=== PATIENT | female | born 1965 | race Caucasian/White ===

== ENCOUNTER 2016-04-28 07:39 | Inpatient (IN) | payer BC ==
[2016-04-28] MEDS ORDERED: ONDANSETRON HCL INJ/PF 4 MG/2 ML SDV IV ONE (09:41)
--- NOTE | 2016-04-28 09:42 | ER Document Report ---
ED General - General Chief Complaint: Abdominal Pain Stated Complaint: ABDOMINAL PAIN Mode of Arrival: Ambulatory Information source: Patient Notes: Patient presents to the emergency department with complaints of abdominal pain nausea vomiting since 0200 this am. Patient reports history of pancreatitis. Patient reports she drank approximately 18 beers last night. TRAVEL OUTSIDE OF THE [place] IN LAST 30 DAYS: No - HPI Onset: This morning Onset/Duration: Sudden, Persistent Severity: Severe Pain Level: 5 Associated symptoms: Nausea, Vomiting Exacerbated by: Denies Relieved by: Denies Similar symptoms previously: Yes Recently seen / treated by doctor: No - Related Data Allergies/Adverse Reactions: No Known Allergies Allergy (Verified 04/28/16 07:59) Past Medical History - General Information source: Patient Last Menstrual Period: irregular - Social History Smoking Status: Current Every Day Smoker Cigarette use (# per day): Yes Frequency of alcohol use: Heavy Drug Abuse: None Occupation: [place] Lives with: Alone Family History: Reviewed & Not Pertinent Patient has suicidal ideation: No Patient has homicidal ideation: No - Past Medical History Cardiac Medical History: Reports: Hx Hypercholesterolemia, Hx Hypertension Denies: Hx Heart Attack Comment Only: Hx Coronary Artery Disease - high lipids Pulmonary Medical History: Reports: Hx Bronchitis Denies: Hx Asthma, Hx COPD, Hx Pneumonia Neurological Medical History: Denies: Hx Cerebrovascular Accident, Hx Seizures Renal/ Medical History: Reports: Hx Kidney Stones. Denies: Hx Peritoneal Dialysis GI Medical History: Reports: Hx Gastroesophageal Reflux Disease, Other - pancreatitis Musculoskeltal Medical History: Denies Hx Arthritis Psychiatric Medical History: Reports: Hx Depression - takes zoloft Past Surgical History: Reports: Hx Tonsillectomy, Hx Tubal Ligation. Denies: Hx Hysterectomy - Immunizations Hx Diphtheria, Pertussis, Tetanus Vaccination: Yes Review of Systems - Review of Systems Notes: Review HPI for review of systems., All other systems negative Physical Exam - Vital signs Vitals: Temp Pulse Resp BP Pulse Ox 97.7 F 92 21 H 178/90 H 97 04/28/16 07:45 04/28/16 07:45 04/28/16 07:45 04/28/16 07:45 04/28/16 07:45 - Notes Notes: PHYSICAL EXAMINATION: GENERAL: Looks older than age HEAD: Atraumatic, normocephalic. EYES: Pupils equal round , extraocular movements intact, sclera anicteric, conjunctiva are normal. ENT: nares patent, oropharynx clear without exudates. Moist mucous membranes. NECK: Normal range of motion, supple without lymphadenopathy LUNGS: CTAB and equal. No wheezes rales or rhonchi. no cough, rr even/unlabored HEART: Tachy ABDOMEN: Soft,generalized tenderness. No guarding, no rebound EXTREMITIES: Normal range of motion, no pitting edema. NEUROLOGICAL: Cranial nerves grossly intact. Normal sensory/motor . PSYCH: Normal mood, normal affect. SKIN: Warm, Dry, normal turgor, Course - Re-evaluation Re-evalutation: 04/28/16 11:30 I have consulted the attending provider, dr estrella, per [facility] guidelines 04/28/16 11:48 Contacted [facility] for admission, pt to be admitted tele innjt. patient updated on plan. - Vital Signs Vital signs: Temp Pulse Resp BP Pulse Ox 97.7 F 87 19 178/90 H 96 04/28/16 07:45 04/28/16 13:42 04/28/16 13:42 04/28/16 07:45 04/28/16 13:42 - Laboratory Result Diagrams: 04/28/16 07:50 04/28/16 10:40 Laboratory results interpreted by me: 04/28/16 04/28/16 07:50 10:40 WBC 13.8 H MCV 100 H MCH 33.6 H Seg Neutrophils % 84.2 H Lymphocytes % 8.4 L Absolute Neutrophils 11.6 H Glucose 148 H AST 58 H Lipase 3760.4 H Discharge - Discharge Clinical Impression: Alcohol abuse Abdominal pain Qualifiers: Abdominal location: generalized Qualified Code(s): R10.84 - Generalized abdominal pain Pancreatitis Qualifiers: Chronicity: acute Pancreatitis type: alcohol induced Acute pancreatitis complication: unspecified Qualified Code(s): K85.20 - Alcohol induced acute pancreatitis without necrosis or infection Condition: Stable Disposition: ADMITTED INPATIENT Admitting Provider: Hospitalist Unit Admitted: Telemetry
[2016-04-28 10:02] LABS: ABSOLUTE BASOPHILS # (AUTO) 0.1 10^3/uL (0.0-0.2); ABSOLUTE EOSINOPHILS # (AUTO) 0.2 10^3/uL (0.0-0.6); ABSOLUTE LYMPHOCYTES (AUTO) 1.2 10^3/uL (0.5-4.7); ABSOLUTE MONOCYTES (AUTO) 0.7 10^3/uL (0.1-1.4); ABSOLUTE NEUT (AUTO) 11.6 10^3/uL (1.7-8.2); BASOPHILS % (AUTO) 0.6 % (0-2); EOSINOPHILS % (AUTO) 1.5 % (0-6); HEMATOCRIT 43.2 % (36.0-47.0); HEMOGLOBIN 14.5 g/dL (12.0-15.5); HGB HCT DIFFERENCE 0.3; LYMPHOCYTES % (AUTO) 8.4 % (13-45); MEAN CORPUSCULAR HEMOGLOBIN 33.6 pg (27.0-33.4); MEAN CORPUSCULAR HGB CONC 33.6 g/dL (32.0-36.0); MEAN CORPUSCULAR VOLUME 100 fl (80-97); MONOCYTES % (AUTO) 5.3 % (3-13); RED BLOOD COUNT 4.33 10^6/uL (3.72-5.28); SEGMENTED NEUTROPHILS % (AUTO) 84.2 % (42-78); WHITE BLOOD COUNT 13.8 10^3/uL (4.0-10.5)
[2016-04-28] MEDS ORDERED: NORMAL SALINE 1000 ML 1,000 ML IV ONE (11:14)
[2016-04-28 11:15] LABS: ALANINE AMINOTRANSFERASE 45 U/L (9-52); ALBUMIN 4.5 g/dL (3.5-5.0); ALKALINE PHOSPHATASE 82 U/L (38-126); ANION GAP 12 (5-19); ASPARTATE AMINO TRANSFERASE 58 U/L (14-36); BILIRUBIN,TOTAL 0.7 mg/dL (0.2-1.3); BLOOD UREA NITROGEN 14 mg/dL (7-20); CALCIUM 10.1 mg/dL (8.4-10.2); CARBON DIOXIDE 27 mmol/L (22-30); CHLORIDE 104 mmol/L (98-107); CREATININE RESULT 0.53 mg/dL (0.52-1.25); GLUCOSE 148 mg/dL (75-110); POTASSIUM 4.8 mmol/L (3.6-5.0); SODIUM 143.3 mmol/L (137-145); TOTAL PROTEIN 7.4 g/dL (6.3-8.2)
[2016-04-28 11:25] LABS: LIPASE 3760.4 U/L (23-300)
[2016-04-28 11:30] LABS: APPEARANCE,URINE TURBID; BILIRUBIN,URINE NEGATIVE (NEGATIVE); GLUCOSE, URINE NEGATIVE (NEGATIVE); KETONES,URINE NEGATIVE (NEGATIVE); LEUKOCYTE ESTERASE,URINE NEGATIVE (NEGATIVE); NITRITE,URINE NEGATIVE (NEGATIVE); PROTEIN,URINE NEGATIVE (NEGATIVE); URINE SPECIFIC GRAVITY 1.029; UROBILINOGEN,URINE NEGATIVE mg/dL (<2.0)
[2016-04-28] MEDS ORDERED: MORPHINE SULFATE 10 MG/ML INJ IV ONE (11:40)
[2016-04-28] MEDS ORDERED: ONDANSETRON HCL INJ/PF 4 MG/2 ML SDV IV PRN (12:08)
[2016-04-28] MEDS ORDERED: THIAMINE HCL 100 MG, FOLIC ACID 1 MG in NORMAL SALINE 50 ML IV ONE ×2 (12:14→14:30)
[2016-04-28] MEDS ORDERED: LORAZEPAM INJ 2 MG/1 ML VIAL IV PRN (12:15)
[2016-04-28] MEDS ORDERED: MORPHINE SULFATE 10 MG/ML INJ IV PRN (12:19)
[2016-04-28] MEDS ORDERED: LORAZEPAM INJ 2 MG/1 ML VIAL ONE (12:34)
[2016-04-28] MEDS ORDERED: HYDROMORPHONE HCL INJ/PF 2 MG/ML AMPULE IV PRN ×2 (12:42→15:18)
[2016-04-28] MEDS: NORMAL SALINE 1000 ML 1,000 ML IV PRN (14:56)
[2016-04-28] MEDS: HEPARIN SOD (PORCINE) 5,000 UNIT/ML 1 ML SYRINGE SUBCUT SCH ×2 (14:57→22:45)
--- NOTE | 2016-04-28 15:02 | PDOC H&P ---
History of Present Illness Admission Date/PCP: 04/28/16 12:09 MOIRA VASQUEZ NP Patient complains of: Diffuse, worsening abdominal pain History of Present Illness: MICHAEL BANGURA is a 51 year old female who presents to [facility] ED for afternoon, with complaints of severe worsening epigastric pain. Patient states she has a history of chronic alcohol abuse consuming on the average of 6 beers per day. She states over the weekend in the last 24 hours she is consumed 18 beers. She states the pain began at 2 AM this morning, and worsened in intensity. Pain is very sharp in nature and stabbing. Patient has prior history of acute alcoholic pancreatitis 1 year ago, and her symptoms are very much the same. She denies any nausea or vomiting associated with pain. She states the morphine she was given earlier by the ER provider worsened her pain in intensity. She is somewhat tremulous, but states this is because of the severity of her present pain. She states she has been working and is presently seeing a psychiatrist to assist her in becoming sober. She also has a congested cough she states this has been worsening over the last 2-3 days but is not unusual for her she smokes half a pack to a pack of cigarettes per day. She denies any prior history of delirium tremens or seizures associated with her alcohol abuse. She states she is attempting to find sobriety. She denies any shortness breath, chest pain, or dyspnea. She denies any other complaints at this time. Past Medical History Cardiac Medical History: Reports: Hyperlipidema, Hypertension Denies: Myocardial Infarction Comment Only: Coronary Artery Disease - high lipids Pulmonary Medical History: Reports: Bronchitis, Chronic Obstructive Pulmonary Disease (COPD), Respiratory Failure Denies: Asthma, Pneumonia EENT Medical History: Reports: None Neurological Medical History: Reports: None Denies: Seizures Endocrine Medical History: Reports: None Renal/ Medical History: Reports: None Malignancy Medical History: Reports: None GI Medical History: Reports: Gastroesophageal Reflux Disease, Other - prior episode of alcohol induced pancreatitis Musculoskeltal Medical History: Denies: Arthritis Skin Medical History: Reports: None Psychiatric Medical History: Reports: Alcohol Dependency, Depression - takes zoloft, Tobacco Dependency Traumatic Medical History: Reports: None Hematology: Denies: Anemia Infectious Medical History: Reports: None Past Surgical History Past Surgical History: Reports: Tonsillectomy, Tubal Ligation Denies: Hysterectomy Social History Information Source: Patient Lives with: Alone Smoking Status: Current Every Day Smoker Cigarettes Packs Per Day: 1 Number of Years Smokin Frequency of Alcohol Use: Heavy Amount of Alcoholic Beverages Per Day: 6-20 beers Last Alcohol Use: 04/28/16 Hx Recreational Drug Use: No Drugs: None Hx Prescription Drug Abuse: No - Advance Directive Resuscitation Status: Full Code Surrogate healthcare decision maker:: son Azeem Bangura should she become incapacitated Family History Family History: CAD, Hyperlipidemia, Hypertension Parental Family History Reviewed: Yes Children Family History Reviewed: Yes Sibling(s) Family History Reviewed.: Yes Medication/Allergy Home Medications: Esomeprazole Mag Trihydrate [Nexium] 40 mg PO DAILY 04/01/12 Sertraline HCl [Zoloft] 200 mg PO DAILY 04/01/12 Albuterol Sulfate [Albuterol Sulfate 2.5mg/3 mL] 1 vial IH Q4 PRN #40 vial 05/07 Budesonide [Pulmicort Neb 0.5 mg/2 ml Ampul] 0.5 mg NEB RTQ12 #60 ampul.neb Clindamycin HCl [Cleocin 150 mg Capsule] 300 mg PO Q6 #16 capsule 05/07/15 Folic Acid 1 mg PO DAILY #30 tablet 05/07/15 Furosemide [Lasix 40 mg Tablet] 40 mg PO DAILY #30 tablet 05/07/15 Ipratropium/Albuterol Sulfate [Duoneb 3 ml Ampul] 3 ml NEB RTQ6 #120 vial.neb Levofloxacin [Levaquin 750 mg Tablet] 750 mg PO DAILY #4 tablet 05/07/15 Mv-Mn/FA/Vit K/Lycop/Lut/Coq10 [Daily Multivitamin Capsule] 1 each PO DAILY #30 capsule 05/07/15 Prednisone [Sterapred Ds] 1 pkg PO ASDIR PRN 12 Days 05/07/15 Thiamine HCl [Thiamine 100 mg Tablet] 100 mg PO DAILY #30 tablet 05/07/15 Valsartan [Diovan 80 mg Tablet] 80 mg PO DAILY #30 tablet 05/07/15 Allergies/Adverse Reactions: No Known Allergies Allergy (Verified 04/28/16 07:59) Review of Systems Constitutional: ABSENT: chills, fever(s), headache(s), weight gain, weight loss Eyes: ABSENT: visual disturbances Ears: ABSENT: hearing changes Cardiovascular: ABSENT: chest pain, dyspnea on exertion, edema, orthropnea, palpitations Respiratory: PRESENT: cough, sputum. ABSENT: hemoptysis Gastrointestinal: PRESENT: abdominal pain, heartburn Genitourinary: ABSENT: dysuria, hematuria Musculoskeletal: ABSENT: joint swelling Integumentary: ABSENT: rash, wounds Neurological: ABSENT: abnormal gait, abnormal speech, confusion, dizziness, focal weakness, syncope Psychiatric: PRESENT: as per HPI Endocrine: ABSENT: cold intolerance, heat intolerance, polydipsia, polyuria Hematologic/Lymphatic: ABSENT: easy bleeding, easy bruising Physical Exam Vital Signs: Temp Pulse Resp BP Pulse Ox 97.7 F 87 19 178/90 H 96 04/28/16 07:45 04/28/16 13:42 04/28/16 13:42 04/28/16 07:45 04/28/16 13:42 General appearance: PRESENT: mild distress, obese, well-developed, well- nourished - due to pain Head exam: PRESENT: atraumatic, normocephalic Eye exam: PRESENT: conjunctiva pink, EOMI, PERRLA. ABSENT: scleral icterus Ear exam: PRESENT: normal external ear exam Mouth exam: PRESENT: moist, tongue midline Neck exam: ABSENT: carotid bruit, JVD, lymphadenopathy, thyromegaly Respiratory exam: PRESENT: rhonchi, symmetrical, unlabored Cardiovascular exam: PRESENT: RRR. ABSENT: diastolic murmur, rubs, systolic murmur Pulses: PRESENT: normal dorsalis pedis pul Vascular exam: PRESENT: normal capillary refill GI/Abdominal exam: PRESENT: distended, hyperactive bowel sounds, soft, tenderness Rectal exam: PRESENT: deferred Extremities exam: PRESENT: full ROM. ABSENT: calf tenderness, clubbing, pedal edema Neurological exam: PRESENT: alert, awake, oriented to person, oriented to place , oriented to time, oriented to situation, CN II-XII grossly intact. ABSENT: motor sensory deficit Psychiatric exam: PRESENT: anxious Skin exam: PRESENT: dry, intact, warm. ABSENT: cyanosis, rash Assessment & Plan - Diagnosis (1) Acute pancreatitis Qualifiers: Pancreatitis type: alcohol induced Is this a current diagnosis for this admission?: YesPlan: Patient will be kept NPO. Aggressive hydration and pain control with Dilaudid prn (2) Epigastric pain Is this a current diagnosis for this admission?: YesPlan: Protonix 40 mg IV q12 (3) COPD (chronic obstructive pulmonary disease) Qualifiers: Emphysema type: unspecified Is this a current diagnosis for this admission?: Yes (4) Alcohol abuse Is this a current diagnosis for this admission?: YesPlan: Thiamine and Folic Acid IV. Ativan prn for tremors.Patient was counseled (5) Tobacco abuse Is this a current diagnosis for this admission?: YesPlan: Nicotine patch daily. Counseled on need to stop smoking - Time Time Spent: 50 to 70 Minutes Critical Time spent with patient: 25-34 minutes Smoking Cessation Education: 3 to 10 minutes Medications reviewed and adjusted accordingly: Yes Anticipated discharge: Home - Inpatient Certification Based on my medical assessment, after consideration of the patient's comorbidities, presenting symptoms, or acuity I expect that the services needed warrant INPATIENT care.: Yes I certify that my determination is in accordance with my understanding of Medicare's requirements for reasonable and necessary INPATIENT services [42 CFR 412.3e].: Yes Medical Necessity: Need For IV Fluids, Risk of Complication if Not Cared For in Hospital
[2016-04-28] MEDS ORDERED: HYDROMORPHONE HCL INJ/PF 2 MG/ML AMPULE IV ONE (17:00)
[2016-04-28] MEDS: PANTOPRAZOLE SODIUM 40 MG VIAL IV SCH (21:53)
[2016-04-29 04:38] LABS: ABSOLUTE BASOPHILS # (AUTO) 0.1 10^3/uL (0.0-0.2); ABSOLUTE EOSINOPHILS # (AUTO) 0.2 10^3/uL (0.0-0.6); ABSOLUTE LYMPHOCYTES (AUTO) 1.8 10^3/uL (0.5-4.7); ABSOLUTE MONOCYTES (AUTO) 0.6 10^3/uL (0.1-1.4); ABSOLUTE NEUT (AUTO) 5.3 10^3/uL (1.7-8.2); BASOPHILS % (AUTO) 0.6 % (0-2); EOSINOPHILS % (AUTO) 2.7 % (0-6); HEMATOCRIT 38.4 % (36.0-47.0); HEMOGLOBIN 12.8 g/dL (12.0-15.5); LYMPHOCYTES % (AUTO) 22.4 % (13-45); MEAN CORPUSCULAR HEMOGLOBIN 33.7 pg (27.0-33.4); MEAN CORPUSCULAR HGB CONC 33.2 g/dL (32.0-36.0); MEAN CORPUSCULAR VOLUME 102 fl (80-97); MONOCYTES % (AUTO) 7.7 % (3-13); RED BLOOD COUNT 3.78 10^6/uL (3.72-5.28); RED CELL DISTRIBUTION WIDTH 13.1 % (11.5-14.0); SEGMENTED NEUTROPHILS % (AUTO) 66.6 % (42-78); WHITE BLOOD COUNT 7.9 10^3/uL (4.0-10.5)
[2016-04-29] MEDS: NORMAL SALINE 1000 ML 1,000 ML IV PRN ×2 (04:59→12:06)
[2016-04-29 05:04] LABS: ALANINE AMINOTRANSFERASE 44 U/L (9-52); ALBUMIN 3.8 g/dL (3.5-5.0); ALKALINE PHOSPHATASE 66 U/L (38-126); ANION GAP 7 (5-19); ASPARTATE AMINO TRANSFERASE 39 U/L (14-36); BILIRUBIN,TOTAL 0.9 mg/dL (0.2-1.3); BLOOD UREA NITROGEN 10 mg/dL (7-20); CARBON DIOXIDE 27 mmol/L (22-30); CHLORIDE 109 mmol/L (98-107); CHOLESTEROL 262.44 mg/dL (0-200); Direct HDL 51 mg/dL (>40); GLUCOSE 98 mg/dL (75-110); LIPASE 765.5 U/L (23-300); MAGNESIUM 1.8 mg/dL (1.6-2.3); POTASSIUM 4.1 mmol/L (3.6-5.0); SODIUM 143.4 mmol/L (137-145)
[2016-04-29 05:15] LABS: DIRECT LDL 134 mg/dL (<100)
[2016-04-29 05:19] LABS: TRIGLYCERIDES 746 mg/dL (<150)
[2016-04-29] MEDS: HEPARIN SOD (PORCINE) 5,000 UNIT/ML 1 ML SYRINGE SUBCUT SCH ×3 (06:00→22:11)
[2016-04-29] MEDS: BUDESONIDE NEB 0.5 MG/2 ML AMPUL NEB SCH ×2 (09:01→19:57)
[2016-04-29] MEDS: IPRATROPIUM/ALBUTEROL 0.5-2.5 MG/3 ML AMPUL NEB PRN ×2 (09:01→19:57)
[2016-04-29] MEDS ORDERED: (PENDING PHARMACY ID) (Bupropion Hcl [Bupropion Xl] 300 MG) PO SCH (10:00)
[2016-04-29] MEDS ORDERED: NALTREXONE HCL 50 MG PO SCH (10:00)
[2016-04-29] MEDS ORDERED: CANDESARTAN CILEXETIL PO SCH (10:00)
[2016-04-29] MEDS: LOSARTAN POTASSIUM 50 MG TABLET PO SCH (12:07)
[2016-04-29] MEDS: SERTRALINE HCL 50 MG TABLET PO SCH ×2 (12:08→22:10)
[2016-04-29] MEDS: ASPIRIN 81 MG TABLET, CHEWABLE PO SCH (12:08)
[2016-04-29] MEDS: PANTOPRAZOLE SODIUM 40 MG VIAL IV SCH ×2 (12:09→22:09)
[2016-04-29] MEDS: THIAMINE HCL 100 MG, FOLIC ACID 1 MG in NORMAL SALINE 50 ML IV SCH (12:10)
[2016-04-29] MEDS: NICOTINE 21 MG/24 HR PATCH.TD24 TD SCH (12:12)
--- NOTE | 2016-04-29 15:12 | PDOC PROGRESS REPORT ---
Subjective Progress Note for:: 04/29/16 Subjective:: Patient was seen on morning rounds. She is resting comfortably in bed. She states her abdominal pain is much improved from yesterday. She is no longer tremulous. She denies any nausea at the present time. She denies any fevers or chills. Nursing reports no issues overnight. The rest of the review of systems are negative. Physical Exam Vital Signs: Temp Pulse Resp BP Pulse Ox 97.5 F 71 16 159/87 H 95 04/29/16 07:15 04/29/16 11:18 04/29/16 11:18 04/29/16 07:15 04/29/16 11:18 Intake & Output 04/28/16 04/29/16 04/30/16 06:59 06:59 06:59 Intake Total 1200 Output Total 0 Balance 1200 Weight 88.7 kg 88.7 kg General appearance: PRESENT: no acute distress, well-developed, well-nourished Head exam: PRESENT: atraumatic, normocephalic Eye exam: PRESENT: conjunctiva pink, EOMI, PERRLA. ABSENT: scleral icterus Ear exam: PRESENT: normal external ear exam Mouth exam: PRESENT: moist, tongue midline Neck exam: ABSENT: carotid bruit, JVD, lymphadenopathy, thyromegaly Respiratory exam: PRESENT: accessory muscle use Cardiovascular exam: PRESENT: RRR. ABSENT: diastolic murmur, rubs, systolic murmur Pulses: PRESENT: normal dorsalis pedis pul GI/Abdominal exam: PRESENT: normal bowel sounds, soft, tenderness Rectal exam: PRESENT: deferred Extremities exam: PRESENT: full ROM. ABSENT: calf tenderness, clubbing, pedal edema Neurological exam: PRESENT: alert, awake, oriented to person, oriented to place , oriented to time, oriented to situation, CN II-XII grossly intact. ABSENT: motor sensory deficit Psychiatric exam: PRESENT: appropriate affect, normal mood. ABSENT: homicidal ideation, suicidal ideation Skin exam: PRESENT: dry, intact, warm. ABSENT: cyanosis, rash Results Laboratory Results: 04/29/16 04:22 04/29/16 04:22 04/29/16 04/29/16 04/29/16 04:22 04:22 04:22 WBC 7.9 RBC 3.78 Hgb 12.8 Hct 38.4 MCV 102 H MCH 33.7 H MCHC 33.2 RDW 13.1 Plt Count 161 Seg Neutrophils % 66.6 Lymphocytes % 22.4 Monocytes % 7.7 Eosinophils % 2.7 Basophils % 0.6 Absolute Neutrophils 5.3 Absolute Lymphocytes 1.8 Absolute Monocytes 0.6 Absolute Eosinophils 0.2 Absolute Basophils 0.1 Sodium 143.4 Potassium 4.1 Chloride 109 H Carbon Dioxide 27 Anion Gap 7 BUN 10 Creatinine 0.60 Est GFR ( Amer) > 60 Est GFR (Non-Af Amer) > 60 Glucose 98 Calcium 9.0 Magnesium 1.8 Total Bilirubin 0.9 AST 39 H ALT 44 Alkaline Phosphatase 66 Ammonia < 8.7 L Total Protein 6.0 L Albumin 3.8 Triglycerides 746 H Cholesterol 262.44 H LDL Cholesterol Direct 134 H VLDL Cholesterol UNABLE TO CALCULATE HDL Cholesterol 51 Lipase 765.5 H Assessment & Plan - Diagnosis (1) Acute pancreatitis Qualifiers: Pancreatitis type: alcohol induced Is this a current diagnosis for this admission?: YesPlan: Lipase much improved since yesterday. Pain improved. Will continue to hydrate and start clear liquids this afternoon. (2) Epigastric pain Is this a current diagnosis for this admission?: YesPlan: Protonix 40 mg IV q12 (3) COPD (chronic obstructive pulmonary disease) Qualifiers: Emphysema type: unspecified Is this a current diagnosis for this admission?: YesPlan: Continue inhalers. Nebulizers prn (4) Alcohol abuse Is this a current diagnosis for this admission?: YesPlan: Thiamine and Folic Acid IV. Ativan prn for tremors.Patient was counseled (5) Tobacco abuse Is this a current diagnosis for this admission?: YesPlan: Nicotine patch daily. Counseled on need to stop smoking - Time Time Spent with patient: 25-34 minutes Critical Time spent with patient: 15-24 minutes Smoking Cessation Education: 3 to 10 minutes Medications reviewed and adjusted accordingly: Yes Anticipated discharge: Home
[2016-04-29] MEDS ORDERED: NORMAL SALINE 1000 ML 1,000 ML IV PRN (15:14)
[2016-04-29] MEDS: BUPROPION HCL 100 MG TABLET PO SCH ×2 (16:14→22:11)
[2016-04-29] MEDS ORDERED: (PENDING PHARMACY ID) (Prazosin Hcl [Minipress] 1 MG) PO SCH (22:00)
[2016-04-30 04:44] LABS: ABSOLUTE BASOPHILS # (AUTO) 0.1 10^3/uL (0.0-0.2); ABSOLUTE EOSINOPHILS # (AUTO) 0.3 10^3/uL (0.0-0.6); ABSOLUTE LYMPHOCYTES (AUTO) 1.7 10^3/uL (0.5-4.7); ABSOLUTE MONOCYTES (AUTO) 0.5 10^3/uL (0.1-1.4); ABSOLUTE NEUT (AUTO) 4.7 10^3/uL (1.7-8.2); BASOPHILS % (AUTO) 0.8 % (0-2); EOSINOPHILS % (AUTO) 3.8 % (0-6); HEMATOCRIT 35.3 % (36.0-47.0); HEMOGLOBIN 12.2 g/dL (12.0-15.5); HGB HCT DIFFERENCE 1.3; LYMPHOCYTES % (AUTO) 23.7 % (13-45); MEAN CORPUSCULAR HEMOGLOBIN 34.2 pg (27.0-33.4); MEAN CORPUSCULAR HGB CONC 34.5 g/dL (32.0-36.0); MEAN CORPUSCULAR VOLUME 99 fl (80-97); MONOCYTES % (AUTO) 7.2 % (3-13); RED BLOOD COUNT 3.56 10^6/uL (3.72-5.28); RED CELL DISTRIBUTION WIDTH 12.9 % (11.5-14.0); SEGMENTED NEUTROPHILS % (AUTO) 64.5 % (42-78); WHITE BLOOD COUNT 7.3 10^3/uL (4.0-10.5)
[2016-04-30 05:07] LABS: ALANINE AMINOTRANSFERASE 46 U/L (9-52); ALBUMIN 3.7 g/dL (3.5-5.0); ALKALINE PHOSPHATASE 69 U/L (38-126); ANION GAP 9 (5-19); ASPARTATE AMINO TRANSFERASE 47 U/L (14-36); BILIRUBIN,TOTAL 0.7 mg/dL (0.2-1.3); BLOOD UREA NITROGEN 7 mg/dL (7-20); CALCIUM 9.1 mg/dL (8.4-10.2); CARBON DIOXIDE 26 mmol/L (22-30); CHLORIDE 107 mmol/L (98-107); CREATININE RESULT 0.51 mg/dL (0.52-1.25); GLUCOSE 92 mg/dL (75-110); LIPASE 335.8 U/L (23-300); MAGNESIUM 1.8 mg/dL (1.6-2.3); POTASSIUM 3.5 mmol/L (3.6-5.0); SODIUM 142.4 mmol/L (137-145); TOTAL PROTEIN 5.7 g/dL (6.3-8.2)
[2016-04-30] MEDS: BUPROPION HCL 100 MG TABLET PO SCH (05:52)
[2016-04-30] MEDS: HEPARIN SOD (PORCINE) 5,000 UNIT/ML 1 ML SYRINGE SUBCUT SCH (05:52)
[2016-04-30] MEDS: BUDESONIDE NEB 0.5 MG/2 ML AMPUL NEB SCH (07:42)
[2016-04-30 08:19] VITALS: BP 153/88
[2016-04-30] MEDS ORDERED: POTASSIUM CHLORIDE 10 MEQ TABLET.SA PO ONE (09:30)
[2016-04-30] MEDS: PANTOPRAZOLE SODIUM 40 MG VIAL IV SCH (09:40)
[2016-04-30] MEDS: ASPIRIN 81 MG TABLET, CHEWABLE PO SCH (09:40)
[2016-04-30] MEDS: LOSARTAN POTASSIUM 50 MG TABLET PO SCH (09:40)
[2016-04-30] MEDS: SERTRALINE HCL 50 MG TABLET PO SCH (09:40)
[2016-04-30] MEDS: NICOTINE 21 MG/24 HR PATCH.TD24 TD SCH (09:42)
[2016-04-30] MEDS: THIAMINE HCL 100 MG, FOLIC ACID 1 MG in NORMAL SALINE 50 ML IV SCH (09:42)
--- NOTE | 2016-04-30 16:15 | PDOC DISCHARGE SUMMARY ---
General - Admit/Disc Date/PCP Admission Date/Primary Care Provider: 04/28/16 12:09 MOIRA VASQUEZ NP Discharge Date: 04/30/16 - Discharge Diagnosis (1) Acute pancreatitis Is this a current diagnosis for this admission?: Yes (2) Alcohol abuse Is this a current diagnosis for this admission?: YesSummary: Binge drinking pattern (3) COPD (chronic obstructive pulmonary disease) Is this a current diagnosis for this admission?: Yes (4) Hyperlipidemia Is this a current diagnosis for this admission?: Yes (5) GERD (gastroesophageal reflux disease) Is this a current diagnosis for this admission?: Yes (6) Hypertension Is this a current diagnosis for this admission?: Yes (7) Tobacco abuse Is this a current diagnosis for this admission?: Yes - Additional Information Resuscitation Status: Full Code Discharge Diet: As Tolerated - Fat free for now Discharge Activity: Other - The patient can return to work clear primary care provider. Home Medications: Aspirin [Aspirin 81 mg Chewable Tablet] 81 mg PO DAILY 04/28/16 Budesonide [Pulmicort Neb 0.5 mg/2 ml Ampul] 0.5 mg NEB RTQ12 04/28/16 Bumetanide [Bumex 1 mg Tablet] 1 tab PO DAILY 04/28/16 Bupropion HCl [Bupropion Xl] 300 mg PO DAILY 04/28/16 Candesartan Cilexetil [Atacand 16 mg Tablet] 1 tab PO DAILY 04/28/16 Ergocalciferol (Vitamin D2) [Vitamin D2] 50,000 unit PO MO@1000 04/28/16 Esomeprazole Magnesium [Nexium] 40 mg PO DAILY 04/28/16 Folic Acid 1 mg PO DAILY 04/28/16 Naltrexone HCl [Revia] 50 mg PO BID 04/28/16 Prazosin HCl [Minipress] 1 mg PO QHS 04/28/16 Sertraline HCl [Zoloft] 100 mg PO BID 04/28/16 Tiotropium Br/Olodaterol HCl [Stiolto Respimat Inhal Gray] 2 inh IH DAILY 04/28 Rosuvastatin Calcium [Crestor 10 mg Tablet] 10 mg PO QHS #60 tablet 04/30/16 History of Present Illness Patient complains of: Abdominal pain History of Present Illness: MICHAEL TERRY is a 51 year old female who presents to [facility] ED with complaints of severe worsening epigastric pain. Patient has a history of chronic alcohol abuse and describes a binge drinking pattern. The patient stated in the last 24 hours she is consumed 18 beers. She states the pain began at 2 AM this morning, and worsened in intensity. Pain is very sharp in nature and stabbing. Patient has prior history of acute alcoholic pancreatitis 1 year ago, and her symptoms are very much the same. She denies any nausea or vomiting associated with pain. She states the morphine she was given earlier by the ER provider worsened her pain in intensity. Patient stated has been working and is presently seeing a psychiatrist to assist her in becoming sober. She also has a congested cough she states this has been worsening over the last 2-3 days but is not unusual for her she smokes half a pack to a pack of cigarettes per day. She denies any prior history of delirium tremens or seizures associated with her alcohol abuse. She states she is attempting to find sobriety. She denies any shortness breath, chest pain, or dyspnea. Hospital Course Hospital Course: The patient was admitted to a continuous telemetry unit. The patient maintained NPO status and aggressively hydrated. The patient's lipase improved and low fat diet advanced accordingly without an increase in lipase. The patient's symptoms of abdominal pain, nausea, or vomiting were managed with appropriate analgesia and/or antiemetic. The patient is now able to maintain hydration. Patient was counseled on the importance of alcohol cessation. Physical Exam Vital Signs: Temp Pulse Resp BP Pulse Ox 98.2 F 93 16 153/88 H 96 04/30/16 10:30 04/30/16 10:30 04/30/16 10:30 04/30/16 10:30 04/30/16 10:30 Intake & Output 04/28/16 04/29/16 04/30/16 23:59 23:59 23:59 Intake Total 19490 Output Total 0 Balance 1949 1819 Weight 88.7 kg 89.3 kg General appearance: PRESENT: no acute distress, well-developed, well-nourished Head exam: PRESENT: atraumatic, normocephalic Eye exam: PRESENT: conjunctiva pink, EOMI, PERRLA. ABSENT: scleral icterus Ear exam: PRESENT: normal external ear exam Mouth exam: PRESENT: moist, tongue midline Neck exam: ABSENT: carotid bruit, JVD, lymphadenopathy, thyromegaly Respiratory exam: PRESENT: clear to auscultation manish. ABSENT: rales, rhonchi, wheezes Cardiovascular exam: PRESENT: RRR. ABSENT: diastolic murmur, rubs, systolic murmur Pulses: PRESENT: normal dorsalis pedis pul Vascular exam: PRESENT: normal capillary refill GI/Abdominal exam: PRESENT: normal bowel sounds, soft, tenderness. ABSENT: distended, guarding, mass, organolmegaly, rebound Rectal exam: PRESENT: deferred Extremities exam: PRESENT: full ROM. ABSENT: calf tenderness, clubbing, pedal edema Neurological exam: PRESENT: alert, awake, oriented to person, oriented to place , oriented to time, oriented to situation, CN II-XII grossly intact. ABSENT: motor sensory deficit Psychiatric exam: PRESENT: appropriate affect, normal mood. ABSENT: homicidal ideation, suicidal ideation Skin exam: PRESENT: dry, intact, warm. ABSENT: cyanosis, rash Results Laboratory Results: 04/30/16 04:14 04/30/16 04:14 04/30/16 04/30/16 04:14 04:14 WBC 7.3 RBC 3.56 L Hgb 12.2 Hct 35.3 L MCV 99 H MCH 34.2 H MCHC 34.5 RDW 12.9 Plt Count 167 Seg Neutrophils % 64.5 Lymphocytes % 23.7 Monocytes % 7.2 Eosinophils % 3.8 Basophils % 0.8 Absolute Neutrophils 4.7 Absolute Lymphocytes 1.7 Absolute Monocytes 0.5 Absolute Eosinophils 0.3 Absolute Basophils 0.1 Sodium 142.4 Potassium 3.5 L Chloride 107 Carbon Dioxide 26 Anion Gap 9 BUN 7 Creatinine 0.51 L Est GFR ( Amer) > 60 Est GFR (Non-Af Amer) > 60 Glucose 92 Calcium 9.1 Magnesium 1.8 Total Bilirubin 0.7 AST 47 H ALT 46 Alkaline Phosphatase 69 Total Protein 5.7 L Albumin 3.7 Lipase 335.8 H Qualifiers [place] BEING DISCHARGED WITH ANY OF THE FOLLOWING DIAGNOSIS?: No Plan Discharge Plan: The patient is to followup with their primary care provider, within one week for hospital followup regarding acute pancreatitis. Time Spent: Less than 30 Minutes
== END 2016-04-30 10:57 | disposition home or self-care (01) | DRG 440 ==
LOC: ER 07:39 → EH 12:09 → UNDOADMIN 12:19 → EH 12:19 → 3N 23:44
PROVIDERS: ADMIT Family Medicine; ATTEND Family Medicine
DX: K85.20 Alcohol induced acute pancreatitis without necrosis or infection (principal); F10.20 Alcohol dependence, uncomplicated; I10 Essential (primary) hypertension; E78.00 Pure hypercholesterolemia, unspecified; K21.9 Gastro-esophageal reflux disease without esophagitis; F32.9 Major depressive disorder, single episode, unspecified; J43.9 Emphysema, unspecified; F17.210 Nicotine dependence, cigarettes, uncomplicated; E78.5 Hyperlipidemia, unspecified; I25.10 Atherosclerotic heart disease of native coronary artery without angina pectoris; Z82.49 Family history of ischemic heart disease and other diseases of the circulatory system; Z79.899 Other long term (current) drug therapy; Z87.442 Personal history of urinary calculi; Z98.51 Tubal ligation status
CPT/HCPCS: 36415; 80053; 80061; 80307; 81001; 82140; 83690; 83735; 84703; 85025; 96361; 96374; 96375; 99284; J1170; J1644; J2060; J2270; J2405; J3411; J3490; J7030; J7620; S0164

== ENCOUNTER → 2016-12-05 | Outpatient (CLI) | payer BC ==
--- NOTE | 2016-12-05 19:14 | XCELERA REPORT ---
[address] [address] Transthoracic Echocardiogram Report Name: MICHAEL TERRY Age: 51 yrs Gender: Female : 1965 Patient Status: Outpatient Patient Location: Study Date: 12/05/2016 03:18 PM Height: 65 in Weight: 208 lb BSA: 2.0 m2 Procedure: A complete two-dimensional transthoracic echocardiogram was performed (2D, M-mode, spectral and color flow Doppler). The study was technically difficult with many images being suboptimal in quality. Reason For Study: SOB Ordering Physician: MARY JO BROWN Performed By: Nay Jean Interpretation Summary The study was technically difficult with many images being suboptimal in quality. The left ventricular ejection fraction is preserved. Doppler measurements suggest pseudonormalized left ventricular relaxation, which is associated with grade II/IV or mild to moderate diastolic dysfunction There is borderline concentric left ventricular hypertrophy. The left ventricle is grossly normal size. Wall motion cannot be accurately commented on, but no definite regional wall motion abnormalities noted. The right ventricle is mildly dilated. The left atrium is mildly dilated. The right atrium is mildly dilated. There is a trace amount of mitral regurgitation There is no mitral valve stenosis. No aortic regurgitation is present. There is no aortic valve stenosis There is a trace to mild amount of tricuspid regurgitation There is mild pulmonary hypertension by echo Best estimated RVSP is approximately 40-45 mm/Hg. There is no pericardial effusion. MMode/2D Measurements & Calculations RVDd: 3.1 cm LVIDd: 4.7 cmFS: 30.8 % Ao root diam: 3.2 cm IVSd: 0.95 cm LVIDs: 3.2 cmEDV(Teich): 100.4 ml LVPWd: 1.0 cmESV(Teich): 41.8 ml Ao root area: 8.2 cm2 EF(Teich): 58.3 % LA dimension: 4.1 cm LVOT diam: 2.1 cm LVOT area: 3.4 cm2 Doppler Measurements & Calculations MV E max danyel: MV P1/2t max danyel: Ao V2 max: LV V1 max P.1 cm/sec 107.6 cm/sec 164.1 cm/sec 5.9 mmHg MV A max danyel: MV P1/2t: 34.5 msec Ao max PG: LV V1 max: 98.2 cm/sec MVA(P1/2t): 6.4 cm2 10.8 mmHg 121.4 cm/sec MV E/A: 1.1 MV dec slope: MICHEL(V,D): 2.5 cm2 913.3 cm/sec2 PA V2 max: TR max danyel: 101.7 cm/sec 306.4 cm/sec PA max PG: TR max P.6 mmHg 4.1 mmHg Left Ventricle The left ventricle is grossly normal size. There is borderline concentric left ventricular hypertrophy. The left ventricular ejection fraction is preserved. Doppler measurements suggest pseudonormalized left ventricular relaxation, which is associated with grade II/IV or mild to moderate diastolic dysfunction. Wall motion cannot be accurately commented on, but no definite regional wall motion abnormalities noted. Right Ventricle The right ventricle is mildly dilated. There is normal right ventricular wall thickness. The right ventricular systolic function is normal. Atria The right atrium is mildly dilated. The left atrium is mildly dilated. Interarterial septum not well visualized and not well dopplered. Cannot comment on ASD/PFO presence. Mitral Valve The mitral valve is grossly normal. There is no mitral valve stenosis. There is a trace amount of mitral regurgitation. Aortic Valve The aortic valve is not well visualized secondary to technical limitations. There is no aortic valve stenosis. No aortic regurgitation is present. Tricuspid Valve The tricuspid valve is not well visualized secondary to technical limitations. There is no tricuspid stenosis. There is a trace to mild amount of tricuspid regurgitation. There is mild pulmonary hypertension by echo. Best estimated RVSP is approximately 40-45 mm/Hg. Pulmonic Valve The pulmonic valve is not well visualized. Great Vessels The aortic root is not well visualized but is probably normal size. The inferior vena cava appeared normal and decreased < 50% with respiration (RAP 10-15 mmHg). Effusions There is no pericardial effusion. : MARY JO BROWN > Tomer Quiroz
== END ==
LOC: SP 15:04
PROVIDERS: ATTEND Family Medicine
DX: R06.02 Shortness of breath (principal)
CPT/HCPCS: 93306

== ENCOUNTER 2016-12-25 07:38 | Day surgery (SDC) | payer BC ==
[2016-12-25] MEDS ORDERED: NALOXONE HCL INJ/PF 0.4 MG/1 ML SDV ONE (08:01)
[2016-12-25] MEDS ORDERED: ONDANSETRON HCL INJ/PF 4 MG/2 ML SDV ONE (08:01)
[2016-12-25] MEDS ORDERED: DIPHENHYDRAMINE HCL 50 MG/ML VIAL ONE (08:01)
[2016-12-25] MEDS ORDERED: EPINEPHRINE INJ 1 MG/10 ML DISP.SYRIN ONE (08:02)
[2016-12-25] MEDS ORDERED: GLUCAGON,HUMAN RECOMB 1 MG INJ ONE (08:02)
[2016-12-25] MEDS ORDERED: FLUMAZENIL INJ 0.5 MG/5 ML VIAL ONE (08:02)
[2016-12-25] MEDS: MIDAZOLAM 2 MG/2 ML INJ ONE ×3 (08:22→08:29)
[2016-12-25] MEDS: FENTANYL CITRATE INJ/PF 100 MCG/2 ML AMPUL ONE ×3 (08:24→08:32)
--- NOTE | 2016-12-25 08:49 | Operative Report ---
Operative Report DATE OF SURGERY: 12/25/16 Operative Report: The risks, benefits and alternatives of the procedure including risks of bleeding, perforation requiring surgery are explained to the patient detail and informed consent was obtained. Patient was taken back to the endoscopy suite and placed in the left, lateral decubital position. A rectal examination was done which did not reveal any masses tears or fissures. Timeout was called. Conscious sedation medications are provided. An Olympus videoscope was inserted into the patient's rectum the scope was then carefully advanced all the way to the cecum. The cecum was identified by the usual anatomical landmarks including the ileocecal valve as well as the appendiceal office. Photodocumentation is obtained. The scope was then sequentially pulled back via the various segments of the colon including the ascending colon, hepatic flexure, transverse colon, splenic flexure, descending colon finding to the rectosigmoid portions of the colon. Retroflexion maneuvers performed. 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 Diverticulosis OPERATION: Colonoscopy with ablation SURGEON: KELLIE CORDOVA ANESTHESIA: Moderate Sedation - 5 mg of Versed, 100 mcg of fentanyl. Conscious sedation monitoring time 30 minutes. TISSUE REMOVED OR ALTERED: None. COMPLICATIONS: None. ESTIMATED BLOOD LOSS: None. INTRAOPERATIVE FINDINGS: Cecal AVM is noted. Occasional diverticulosis PROCEDURE: Patient tolerated procedure well. No immediate postprocedure complications are noted. Patient discharged in good condition. Discharge date 12/25/2016. Discharge diet: Regular. Discharge activity: Regular. 2-3 week follow-up to discuss findings. Patient is instructed to call the office or proceed to the emergency room should there be any further problems or questions. Since then no polyps she can go 10 year surveillance colonoscopy.
[2016-12-25 10:28] VITALS: BP 147/70
== END 2016-12-25 09:40 | disposition home or self-care (01) ==
LOC: END 07:38
PROVIDERS: ATTEND Internal Medicine Gastroenterology
PROC: 0D5H8ZZ Destruction of Cecum, Via Natural or Artificial Opening Endoscopic (ICD-10-PCS; principal; 2016-12-25 08:30)
DX: Z12.11 Encounter for screening for malignant neoplasm of colon (principal); K57.30 Diverticulosis of large intestine without perforation or abscess without bleeding; Z79.899 Other long term (current) drug therapy; Z79.51 Long term (current) use of inhaled steroids
CPT/HCPCS: 45388; J2250; J3010; J0171; J1200; J1610; J2310; J2405; J3490

== ENCOUNTER → 2018-07-22 | Outpatient (CLI) | payer BC ==
--- NOTE | 2018-07-22 08:29 | WOMENS IMAGING REPORT ---
EXAM DESCRIPTION: U/S ABDOMEN LIMITED COMPLETED DATE/TIME: 07/22/2018 7:35 am REASON FOR STUDY: R94.5 ABNORMAL RESULTS OF LIVER FUNCTION STUDIES R94.5 ABNORMAL RESULTS OF LIVER FUNCTION STUDIES COMPARISON: 04/26/2015 TECHNIQUE: Dynamic and static grayscale images acquired of the abdomen and recorded on PACS. Rheao juwan selected color Doppler and spectral images recorded. LIMITATIONS: None. FINDINGS: PANCREAS: Unremarkable visualized aspects. LIVER: Increased echogenicity. No focal masses. No intrahepatic ductal dilation. Hepatomegaly. LIVER VASCULATURE: Normal directional flow of the main portal vein and hepatic veins. GALLBLADDER: No stones. Normal wall thickness. No pericholecystic fluid. ULTRASOUND-DETECTED GARDNER'S SIGN: Negative. INTRAHEPATIC DUCTS AND COMMON DUCT: CBD and intrahepatic ducts normal caliber. No filling defects. INFERIOR VENA CAVA: Partially visualized. Unremarkable. AORTA: Partially visualized. Unremarkable. RIGHT KIDNEY: Normal size. Normal echogenicity. No solid or suspicious masses. No hydronephrosis. No calcifications. PERITONEAL AND RIGHT PLEURAL SPACE: No ascites or effusions. OTHER: No other significant findings. IMPRESSION: Hepatomegaly with hepatic steatosis. Otherwise, unremarkable right upper quadrant ultrasound. TECHNICAL DOCUMENTATION: JOB ID: [id number] [employer]- All Rights Reserved Reading location - IP/workstation name: [email or web address]
== END ==
LOC: WI 07:02
PROVIDERS: ATTEND Internal Medicine Gastroenterology
DX: R94.5 Abnormal results of liver function studies (principal)
CPT/HCPCS: 76705

== ENCOUNTER 2019-03-09 08:26 | Observation (INO) | payer BC ==
[2019-03-09 09:13] LABS: ABSOLUTE BASOPHILS # (AUTO) 0.1 10^3/uL (0.0-0.2); ABSOLUTE EOSINOPHILS # (AUTO) 0.2 10^3/uL (0.0-0.6); ABSOLUTE LYMPHOCYTES (AUTO) 0.9 10^3/uL (0.5-4.7); ABSOLUTE MONOCYTES (AUTO) 0.8 10^3/uL (0.1-1.4); ABSOLUTE NEUT (AUTO) 4.5 10^3/uL (1.7-8.2); EOSINOPHILS % (AUTO) 2.5 % (0-6); HEMATOCRIT 40.6 % (36.0-47.0); HEMOGLOBIN 13.4 g/dL (12.0-15.5); LYMPHOCYTES % (AUTO) 14.6 % (13-45); MEAN CORPUSCULAR HEMOGLOBIN 27.5 pg (27.0-33.4); MEAN CORPUSCULAR HGB CONC 33.1 g/dL (32.0-36.0); MEAN CORPUSCULAR VOLUME 83 fl (80-97); MONOCYTES % (AUTO) 12.1 % (3-13); PLATELET COUNT 182 10^3/uL (150-450); RED BLOOD COUNT 4.89 10^6/uL (3.72-5.28); RED CELL DISTRIBUTION WIDTH 16.9 % (11.5-14.0); SEGMENTED NEUTROPHILS % (AUTO) 69.8 % (42-78); TOTAL CELLS COUNTED % (AUTO) 100 %; WHITE BLOOD COUNT 6.5 10^3/uL (4.0-10.5)
--- NOTE | 2019-03-09 09:17 | RADIOLOGY REPORT (SQ) ---
EXAM DESCRIPTION: CHEST SINGLE VIEW COMPLETED DATE/TIME: 03/09/2019 9:09 am REASON FOR STUDY: sob COMPARISON: 05/06/2015 EXAM PARAMETERS: NUMBER OF VIEWS: One view. TECHNIQUE: Single frontal radiographic view of the chest acquired. RADIATION DOSE: NA LIMITATIONS: None. FINDINGS: LUNGS AND PLEURA: No opacities, masses or pneumothorax. No pleural effusion. MEDIASTINUM AND HILAR STRUCTURES: No masses. Contour normal. HEART AND VASCULAR STRUCTURES: Heart normal in size. Normal vasculature. BONES: No acute findings. HARDWARE: None in the chest. OTHER: No other significant finding. IMPRESSION: NO ACUTE RADIOGRAPHIC FINDING IN THE CHEST. TECHNICAL DOCUMENTATION: JOB ID: [id number] [employer]- All Rights Reserved Reading location - IP/workstation name: [email or web address]
[2019-03-09 09:20] LABS: ALBUMIN 4.5 g/dL (3.5-5.0); ALKALINE PHOSPHATASE 92 U/L (38-126); ANION GAP 11 (5-19); ASPARTATE AMINO TRANSFERASE 84 U/L (14-36); BILIRUBIN,DIRECT 0.2 mg/dL (0.0-0.4); BILIRUBIN,TOTAL 0.4 mg/dL (0.2-1.3); BLOOD UREA NITROGEN 8 mg/dL (7-20); CALCIUM 10.1 mg/dL (8.4-10.2); CARBON DIOXIDE 28 mmol/L (22-30); CHLORIDE 102 mmol/L (98-107); CREATINE KINASE 109 U/L (30-135); GLUCOSE 129 mg/dL (75-110); POTASSIUM 4.3 mmol/L (3.6-5.0); TOTAL PROTEIN 7.8 g/dL (6.3-8.2)
[2019-03-09 09:31] LABS: CREATINE KINASE MB 1.26 ng/mL (<4.55)
[2019-03-09 09:35] LABS: TROPONIN I < 0.012 ng/mL
[2019-03-09 09:43] LABS: INTERNATIONAL RATION (INR) 1.02; PROTHROMBIN TIME 13.4 SEC (11.4-15.4)
[2019-03-09 09:48] LABS: APPEARANCE,URINE SLIGHTLY-CLOUDY; BILIRUBIN,URINE NEGATIVE (NEGATIVE); COLOR,URINE YELLOW; GLUCOSE, URINE NEGATIVE (NEGATIVE); KETONES,URINE NEGATIVE (NEGATIVE); LEUKOCYTE ESTERASE,URINE NEGATIVE (NEGATIVE); NITRITE,URINE NEGATIVE (NEGATIVE); PROTEIN,URINE NEGATIVE (NEGATIVE); URINE SPECIFIC GRAVITY 1.008; UROBILINOGEN,URINE NEGATIVE mg/dL (<2.0)
[2019-03-09] MEDS ORDERED: IPRATROPIUM/ALBUTEROL 0.5-2.5 MG/3 ML AMPUL NEB ONE ×2 (09:48)
[2019-03-09] MEDS ORDERED: METHYLPREDNISOLONE INJ 125 MG/2 ML SDV IV ONE (09:48)
[2019-03-09] MEDS: MAGNESIUM SULFATE/D5W 1 GM/100 ML RTUPB IV SCH ×2 (10:10→10:39)
[2019-03-09 10:19] LABS: VENOUS BLOOD BASE EXCESS 3.1 mmol/L; VENOUS BLOOD HCO3 30.4 mmol/L (20-32); VENOUS BLOOD PCO2 58.1 mmHg (35-63); VENOUS BLOOD PH 7.34 (7.30-7.42)
[2019-03-09] MEDS ORDERED: ALBUTEROL SULFATE 0.083% NEB 2.5 MG/3 ML AMPUL NEB ONE (11:06)
[2019-03-09] MEDS ORDERED: DOXYCYCLINE HYCLATE INJ 100 MG VIAL IV ONE (12:06)
--- NOTE | 2019-03-09 12:35 | ER Document Report ---
Entered by KALEB GALLARDO SCRIBE 03/09/19 0933 Acting as scribe for:MANOLO ORELLANA DO ED Respiratory Problem - General Chief Complaint: Breathing Difficulty Stated Complaint: TROUBLE BREATING Time Seen by Provider: 03/09/19 09:23 Primary Care Provider: IRVING PIERRE PA-C [Primary Care Provider] - Follow up as needed Mode of Arrival: Ambulatory Information source: Patient Notes: This 53-year-old female patient presents to the emergency department today with complaints of shortness of breath and wheezing for the last few weeks. Patient states that about x4 days ago her shortness of breath became much worse. Patient has not gotten a flu shot or pneumonia vaccine this year. Patient has been admitted in the past for wheezing. Patient states she has at home inhalers that she has been using more than normal recently. Patient denies fevers, recent antibiotic usage, recent steroid usage. Patient does still smoke. TRAVEL OUTSIDE OF THE [place] IN LAST 30 DAYS: No - Related Data Allergies/Adverse Reactions: No Known Allergies Allergy (Verified 03/09/19 08:40) Past Medical History - General Information source: Patient - Social History Smoking Status: Current Every Day Smoker Cigarette use (# per day): Yes Frequency of alcohol use: Occasional Drug Abuse: None Lives with: Family Family History: CAD, Hyperlipidemia, Hypertension Patient has suicidal ideation: No Patient has homicidal ideation: No - Past Medical History Cardiac Medical History: Reports: Hx Hypercholesterolemia, Hx Hypertension Pulmonary Medical History: Reports: Hx COPD, Hx Respiratory Failure Renal/ Medical History: Reports: Hx Kidney Stones GI Medical History: Reports: Hx Gastroesophageal Reflux Disease Musculoskeletal Medical History: Reports Hx Arthritis - THUMBS Psychiatric Medical History: Reports: Hx Depression Past Surgical History: Reports: Hx Tonsillectomy, Hx Tubal Ligation - Immunizations Hx Diphtheria, Pertussis, Tetanus Vaccination: Yes Review of Systems - Review of Systems Constitutional: denies: Fever EENT: No symptoms reported Cardiovascular: No symptoms reported Respiratory: See HPI, Short of breath, Wheezing Gastrointestinal: No symptoms reported Genitourinary: No symptoms reported Female Genitourinary: No symptoms reported Musculoskeletal: No symptoms reported Skin: No symptoms reported Hematologic/Lymphatic: No symptoms reported Neurological/Psychological: No symptoms reported -: Yes All other systems reviewed and negative Physical Exam - Vital signs Vitals: Pulse Ox 86 L 03/09/19 08:26 - Notes Notes: Physical Exam: General: Alert, appears short of breath. HEENT: Normocephalic. Atraumatic. PERRL. Extraocular movements intact. Oropharynx clear. Neck: Supple. Non-tender. Respiratory: Moderate respiratory distress. Wheezing bilaterally. Cardiovascular: Tachycardic, regular rhythm Abdominal: Obese. No distension. Normal Bowel Sounds. Back: No gross abnormalities. Extremities: Moves all four extremities. Upper extremities: Normal inspection. Normal ROM. Lower extremities: Normal inspection. No edema. Normal ROM. Neurological: Normal cognition. AAOx4. Normal speech. Psychological: Normal affect. Normal Mood. Skin: Warm. Dry. Normal color. - Cardiovascular Rhythm: Tachycardia Course - Vital Signs Vital signs: Temp Pulse Resp BP Pulse Ox 98.8 F 107 H 24 H 138/60 H 95 03/09/19 08:37 03/09/19 08:29 03/09/19 12:01 03/09/19 12:00 03/09/19 12:01 - Laboratory Result Diagrams: 03/09/19 08:48 03/09/19 08:48 Laboratory results interpreted by me: 03/09/19 03/09/19 03/09/19 08:48 08:48 10:03 RDW 16.9 H Glucose 129 H POC Glucose 134 H AST 84 H Discharge - Discharge Clinical Impression: Respiratory distress, COPD exacerbation Condition: Stable Disposition: ADMITTED INPATIENT Admitting Provider: Dung (Hospitalist) - [place] [facility] Admitted: Telemetry Referrals: IRVING PIERRE PA-C [Primary Care Provider] - Follow up as needed I personally performed the services described in the documentation, reviewed and edited the documentation which was dictated to the scribe in my presence, and it accurately records my words and actions.
[2019-03-09] MEDS ORDERED: ACETAMINOPHEN 325 MG TABLET PO PRN (13:10)
[2019-03-09] MEDS ORDERED: ALBUTEROL SULFATE 0.083% NEB 2.5 MG/3 ML AMPUL NEB PRN (13:10)
[2019-03-09] MEDS ORDERED: MAG HYDROX/AL HYDROX/SIMETH SUSP 30 ML UDCUP PO PRN (13:10)
[2019-03-09] MEDS ORDERED: PROMETHAZINE HCL INJ 25 MG/1 ML VIAL IV PRN (13:10)
[2019-03-09] MEDS ORDERED: ONDANSETRON HCL INJ/PF 4 MG/2 ML SDV IV PRN (13:10)
[2019-03-09] MEDS: HEPARIN SOD (PORCINE) 5,000 UNIT/ML 1 ML VIAL SUBCUT SCH ×2 (13:52→22:40)
[2019-03-09] MEDS: NICOTINE 14 MG/24 HR PATCH.TD24 TD SCH (13:52)
[2019-03-09] MEDS: METHYLPREDNISOLONE INJ 40 MG/1 ML SDV IV SCH ×2 (13:52→22:40)
--- NOTE | 2019-03-09 14:33 | EKG REPORT ---
SEVERITY:- OTHERWISE NORMAL ECG - SINUS TACHYCARDIA : Confirmed by: Yara Kirk MD 09-Mar-2019 14:31:56
[2019-03-09] MEDS: IPRATROPIUM/ALBUTEROL 0.5-2.5 MG/3 ML AMPUL NEB SCH ×2 (14:48→20:52)
[2019-03-09] MEDS ORDERED: LORAZEPAM INJ 2 MG/1 ML VIAL IV PRN (16:59)
[2019-03-09] MEDS ORDERED: HYDRALAZINE HCL INJ/PF 20 MG/1 ML SDV IV PRN (17:06)
--- NOTE | 2019-03-09 17:08 | PDOC H&P ---
History of Present Illness Admission Date/PCP: 03/09/19 12:41 IRVING PIERRE PA-C Patient complains of: shortness of breath History of Present Illness: MICHAEL TERRY is a 53 year old female with a past medical history of COPD, hypertension, hyperlipidemia, GERD, tobacco abuse, and alcohol abuse who presents to the emergency department today with a complaint of 3 days of rapidly worsening dyspnea on exertion and productive cough. Evaluation in the emergency department today revealed Tachycardia (HR 107), tachypnea (RR 28), hypoxia on room air (85%), normal CBC, coags, VBG, chemistry, troponin, proBNP, lactic acid, and urinalysis. EKG demonstrated sinus tach ycardia and chest x-ray was benign. The patient was provided supplemental oxygen, BiPAP support, nebulizer treatments, IV Solu-Medrol, and IV magnesium with improvement in her dyspnea and oxygenation. She is referred to the hospitalist service for admission and management of COPD exacerbation. Past Medical History Cardiac Medical History: Reports: Hyperlipidema, Hypertension Denies: Coronary Artery Disease, Myocardial Infarction Pulmonary Medical History: Reports: Chronic Obstructive Pulmonary Disease (COPD), Respiratory Failure Denies: Asthma, Bronchitis, Pneumonia Neurological Medical History: Denies: Ischemic CVA, Seizures Endocrine Medical History: Reports: Hypothyroidism, Obesity Renal/ Medical History: Reports: None Malignancy Medical History: Reports: None GI Medical History: Reports: Gastroesophageal Reflux Disease Musculoskeltal Medical History: Reports: Arthritis Psychiatric Medical History: Reports: Alcohol Dependency, Depression, Tobacco Dependency Traumatic Medical History: Reports: None Hematology: Denies: Anemia Infectious Medical History: Reports: None Past Surgical History Past Surgical History: Reports: Tonsillectomy, Tubal Ligation Denies: Hysterectomy Social History Information Source: Patient Lives with: Family Smoking Status: Current Every Day Smoker Cigarettes Packs Per Day: 0.5 Frequency of Alcohol Use: Heavy Hx Recreational Drug Use: No Drugs: None Hx Prescription Drug Abuse: No - Advance Directive Resuscitation Status: Full Code Surrogate healthcare decision maker:: The patient's daughter, Rachel Cardenas, Family History Family History: CAD, Hyperlipidemia, Hypertension Parental Family History Reviewed: Yes Children Family History Reviewed: Yes Sibling(s) Family History Reviewed.: Yes Medication/Allergy Home Medications: Albuterol Sulfate [Albuterol Sulfate Hfa] 2 puff IH Q6HP PRN 03/09/19 Amlodipine Besylate [Norvasc 5 mg Tablet] 5 mg PO DAILY 03/09/19 Aripiprazole [Abilify 5 mg Tablet] 5 mg PO DAILY 03/09/19 Aspirin [Lo-Dose Aspirin EC] 81 mg PO DAILY 03/09/19 Bupropion HCl [Bupropion Xl] 300 mg PO DAILY 03/09/19 Buspirone HCl [Buspar 15 mg Tablet] 7.5 tab PO Q12 03/09/19 Candesartan Cilexetil [Atacand 16 mg Tablet] 26 mg PO DAILY 03/09/19 Ergocalciferol (Vitamin D2) [Drisdol 50,000 Unit (1.25MG) Capsule] 50,000 unit PO MO@1000 03/09/19 Esomeprazole Magnesium [Nexium 24Hr] 20 mg PO DAILY 03/09/19 Fenofibrate Nanocrystallized [Fenofibrate] 160 mg PO DAILY 03/09/19 Fluticasone Propionate [Flovent HFA 220 mcg MDI] 1 puff IH DAILY 03/09/19 Folic Acid [Folvite 1 mg Tablet] 1 mg PO DAILY 03/09/19 Levothyroxine Sodium 25 mcg PO Q6AM 03/09/19 Potassium Chloride [Klor-Con 10 Meq Tablet ER] 10 meq PO DAILY 03/09/19 Rosuvastatin Calcium [Crestor 10 mg Tablet] 10 mg PO QHS 03/09/19 Sertraline HCl [Zoloft] 200 mg PO DAILY 03/09/19 Thiamine Mononitrate [Vitamin B-1] 100 mg PO DAILY 03/09/19 Tiotropium Br/Olodaterol HCl [Stiolto Respimat Inhal [place]] 2 puff IH DAILY 03/09/19 Ubidecarenone/Vitamin E Mixed [Coq10 Sg 100 Softgel] 1 each PO DAILY 03/09/19 Allergies/Adverse Reactions: No Known Allergies Allergy (Verified 03/09/19 08:40) Review of Systems Constitutional: ABSENT: chills, fever(s), headache(s), weight gain, weight loss Eyes: ABSENT: visual disturbances Ears: ABSENT: hearing changes Cardiovascular: ABSENT: chest pain, dyspnea on exertion, edema, orthropnea, palpitations Respiratory: PRESENT: cough, dyspnea, sputum. ABSENT: hemoptysis Gastrointestinal: ABSENT: abdominal pain, constipation, diarrhea, hematemesis, hematochezia, nausea, vomiting Genitourinary: ABSENT: dysuria, hematuria Musculoskeletal: ABSENT: joint swelling Integumentary: ABSENT: rash, wounds Neurological: ABSENT: abnormal gait, abnormal speech, confusion, dizziness, focal weakness, syncope Psychiatric: ABSENT: anxiety, depression, homidical ideation, suicidal ideation Endocrine: ABSENT: cold intolerance, heat intolerance, polydipsia, polyuria Hematologic/Lymphatic: ABSENT: easy bleeding, easy bruising Physical Exam Vital Signs: Temp Pulse Resp BP Pulse Ox 98.8 F 85 18 151/77 H 94 03/09/19 08:37 03/09/19 14:45 03/09/19 16:01 03/09/19 16:00 03/09/19 16:00 Intake & Output 03/08/19 03/09/19 03/10/19 06:59 06:59 06:59 Intake Total 148 Balance 148 Weight 108.2 kg General appearance: PRESENT: no acute distress, cooperative, obese, well- developed, well-nourished Head exam: PRESENT: atraumatic, normocephalic Eye exam: PRESENT: conjunctiva pink, EOMI, PERRLA. ABSENT: scleral icterus Mouth exam: PRESENT: moist, tongue midline Neck exam: ABSENT: carotid bruit, JVD, lymphadenopathy, thyromegaly Respiratory exam: PRESENT: accessory muscle use, prolonged expiratory phas, rhonchi, symmetrical, unlabored, wheezes. ABSENT: rales Cardiovascular exam: PRESENT: RRR, +S1, +S2, tachycardia. ABSENT: diastolic murmur, rubs, systolic murmur Pulses: PRESENT: normal dorsalis pedis pul Vascular exam: PRESENT: normal capillary refill GI/Abdominal exam: PRESENT: normal bowel sounds, soft. ABSENT: distended, guarding, mass, organolmegaly, rebound, tenderness Rectal exam: PRESENT: deferred Extremities exam: PRESENT: full ROM. ABSENT: calf tenderness, clubbing, pedal edema Neurological exam: PRESENT: alert, awake, oriented to person, oriented to place, oriented to time, oriented to situation, CN II-XII grossly intact. ABSENT: motor sensory deficit Psychiatric exam: PRESENT: appropriate affect, normal mood. ABSENT: homicidal ideation, suicidal ideation Skin exam: PRESENT: dry, intact, warm. ABSENT: cyanosis, rash Results Laboratory Results: 03/09/19 08:48 03/09/19 08:48 03/09/19 03/09/19 03/09/19 08:48 08:48 08:48 WBC 6.5 RBC 4.89 Hgb 13.4 Hct 40.6 MCV 83 MCH 27.5 MCHC 33.1 RDW 16.9 H Plt Count 182 Seg Neutrophils % 69.8 VBG pH 7.34 VBG pCO2 58.1 VBG HCO3 30.4 VBG Base Excess 3.1 Sodium 141.1 Potassium 4.3 Chloride 102 Carbon Dioxide 28 Anion Gap 11 BUN 8 Creatinine 0.60 Est GFR ( Amer) > 60 Glucose 129 H Calcium 10.1 Total Bilirubin 0.4 AST 84 H Alkaline Phosphatase 92 Total Protein 7.8 Albumin 4.5 Urine Color Urine Appearance Urine pH Ur Specific Conrad Urine Protein Urine Glucose (UA) Urine Ketones Urine Blood Urine Nitrite Ur Leukocyte Esterase Urine WBC (Auto) Urine RBC (Auto) 03/09/19 09:18 WBC RBC Hgb Hct MCV MCH MCHC RDW Plt Count Seg Neutrophils % VBG pH VBG pCO2 VBG HCO3 VBG Base Excess Sodium Potassium Chloride Carbon Dioxide Anion Gap BUN Creatinine Est GFR ( Amer) Glucose Calcium Total Bilirubin AST Alkaline Phosphatase Total Protein Albumin Urine Color YELLOW Urine Appearance SLIGHTLY-CLOUDY Urine pH 6.0 Ur Specific Conrad 1.008 Urine Protein NEGATIVE Urine Glucose (UA) NEGATIVE Urine Ketones NEGATIVE Urine Blood NEGATIVE Urine Nitrite NEGATIVE Ur Leukocyte Esterase NEGATIVE Urine WBC (Auto) 0 Urine RBC (Auto) 0 03/09/19 03/09/19 03/09/19 08:48 08:48 08:48 Creatine Kinase 109 CK-MB (CK-2) 1.26 Troponin I < 0.012 NT-Pro-B Natriuret Pep 29 Impressions: Chest X-Ray 03/09/19 08:36 IMPRESSION: NO ACUTE RADIOGRAPHIC FINDING IN THE CHEST. Assessment and Plan - Diagnosis (1) COPD exacerbation Is this a current diagnosis for this admission?: Yes Plan: The patient is admitted to the medical floor and continuous cardiac telemetry. Continue supplemental oxygen BiPAP support as needed to maintain saturations greater than 89%. Continue doxycycline 100 mg p.o. twice daily for bronchitis (rapid worsening of symptoms with increased sputum production) Continue scheduled and as needed nebulizer treatments. Continue IV Solu-Medrol. Mucinex twice daily. Encourage pulmonary toilet and ambulation when off BiPAP. (2) Acute respiratory failure with hypoxia Is this a current diagnosis for this admission?: Yes Plan: Secondary to COPD exacerbation. Evaluation management as above. (3) GERD (gastroesophageal reflux disease) Is this a current diagnosis for this admission?: Yes Plan: PPI daily. (4) Hyperlipidemia Is this a current diagnosis for this admission?: Yes Plan: Continue home dose statin. Cardiac diet. (5) Hypertension Is this a current diagnosis for this admission?: Yes Plan: Continue home medication regimen. IV hydralazine as needed for blood pressure control. Cardiac diet. (6) Alcohol dependence Qualifiers: Substance use status: uncomplicated Qualified Code(s): F10.20 - Alcohol dependence, uncomplicated Is this a current diagnosis for this admission?: Yes Plan: Patient denies history of alcohol withdrawal or alcohol related seizures. She does admit to drinking 3-4 beers nightly. Valium 5 mg every 6 hours scheduled. IV Ativan as needed for anxiety/agitation/withdrawal. Continue folic acid and thiamine supplementation. Patient has already received IV magnesium per ED provider for treatment of acute respiratory distress. (7) Tobacco dependence Is this a current diagnosis for this admission?: Yes Plan: Smoking cessation strongly encouraged. Nicotine replacement therapies provided.
[2019-03-09] MEDS: DIAZEPAM 5 MG TABLET PO SCH (18:03)
[2019-03-09] MEDS ORDERED: BUSPIRONE HCL PO SCH (22:00)
[2019-03-09] MEDS: ATORVASTATIN CALCIUM 20 MG TABLET PO SCH (22:38)
[2019-03-09] MEDS: BUPROPION HCL 100 MG TABLET PO SCH (22:38)
[2019-03-09] MEDS: GUAIFENESIN 600 MG TABLET.SA PO SCH (22:38)
[2019-03-09] MEDS ORDERED: DOXYCYCLINE HYCLATE 100 MG TABLET PO ONE (23:06)
[2019-03-09] MEDS: DOXYCYCLINE HYCLATE 100 MG TABLET PO SCH (23:22)
[2019-03-10] MEDS: DIAZEPAM 5 MG TABLET PO SCH ×4 (00:57→17:08)
[2019-03-10] MEDS: IPRATROPIUM/ALBUTEROL 0.5-2.5 MG/3 ML AMPUL NEB SCH ×4 (02:24→20:23)
[2019-03-10] MEDS: PANTOPRAZOLE SODIUM 20 MG TABLET.DR PO SCH ×2 (05:28→09:21)
[2019-03-10] MEDS: BUPROPION HCL 100 MG TABLET PO SCH ×3 (05:28→21:25)
[2019-03-10] MEDS: LEVOTHYROXINE SODIUM 0.025 MG TABLET PO SCH (05:28)
[2019-03-10] MEDS: HEPARIN SOD (PORCINE) 5,000 UNIT/ML 1 ML VIAL SUBCUT SCH ×3 (05:29→21:24)
[2019-03-10] MEDS: METHYLPREDNISOLONE INJ 40 MG/1 ML SDV IV SCH ×3 (05:29→21:25)
[2019-03-10 06:37] LABS: HEMATOCRIT 38.2 % (36.0-47.0); HEMOGLOBIN 12.7 g/dL (12.0-15.5); MEAN CORPUSCULAR HEMOGLOBIN 27.4 pg (27.0-33.4); MEAN CORPUSCULAR HGB CONC 33.3 g/dL (32.0-36.0); MEAN CORPUSCULAR VOLUME 82 fl (80-97); PLATELET COUNT 193 10^3/uL (150-450); RED BLOOD COUNT 4.63 10^6/uL (3.72-5.28); RED CELL DISTRIBUTION WIDTH 16.7 % (11.5-14.0); WHITE BLOOD COUNT 9.1 10^3/uL (4.0-10.5)
[2019-03-10 06:57] LABS: ANION GAP 10 (5-19); BLOOD UREA NITROGEN 10 mg/dL (7-20); CALCIUM 9.6 mg/dL (8.4-10.2); CARBON DIOXIDE 30 mmol/L (22-30); CHLORIDE 101 mmol/L (98-107); GLUCOSE 144 mg/dL (75-110); POTASSIUM 4.6 mmol/L (3.6-5.0)
[2019-03-10] MEDS: ARIPIPRAZOLE 5 MG TABLET PO SCH (09:19)
[2019-03-10] MEDS: THIAMINE HCL 100 MG TABLET PO SCH (09:20)
[2019-03-10] MEDS: FOLIC ACID 1 MG TABLET PO SCH (09:20)
[2019-03-10] MEDS: SERTRALINE HCL 50 MG TABLET PO SCH (09:20)
[2019-03-10] MEDS: FENOFIBRATE NANOCRYSTALLIZED 145 MG TABLET PO SCH (09:20)
[2019-03-10] MEDS: ASPIRIN 81 MG TABLET, ENT COATED PO SCH (09:20)
[2019-03-10] MEDS: GUAIFENESIN 600 MG TABLET.SA PO SCH ×2 (09:20→21:26)
[2019-03-10] MEDS: DOCUSATE SODIUM 100 MG/10 ML UDC PO SCH (09:21)
[2019-03-10] MEDS: NICOTINE 14 MG/24 HR PATCH.TD24 TD SCH (09:21)
[2019-03-10] MEDS: AMLODIPINE BESYLATE 5 MG TABLET PO SCH (09:21)
[2019-03-10] MEDS: DOXYCYCLINE HYCLATE 100 MG TABLET PO SCH ×2 (09:32→21:26)
[2019-03-10] MEDS ORDERED: (PENDING PHARMACY ID) (Bupropion Hcl [Bupropion Xl] 300 MG) PO SCH (10:00)
[2019-03-10] MEDS ORDERED: CANDESARTAN CILEXETIL PO SCH (10:00)
[2019-03-10] MEDS ORDERED: FENOFIBRATE NANOCRYSTALLIZED 160 MG PO SCH (10:00)
[2019-03-10] MEDS ORDERED: PANTOPRAZOLE SODIUM 20 MG TABLET.DR PO SCH (10:00)
[2019-03-10] MEDS ORDERED: (PENDING PHARMACY ID) (Thiamine Mononitrate [Vitamin B-1] 100 MG) PO SCH (10:00)
[2019-03-10] MEDS ORDERED: (PENDING PHARMACY ID) (Sertraline Hcl [Zoloft] 200 MG) PO SCH (10:00)
[2019-03-10] MEDS ORDERED: (PENDING PHARMACY ID) (Esomeprazole Magnesium [Nexium 24hr] 20 MG) PO SCH (10:00)
--- NOTE | 2019-03-10 19:34 | PDOC PROGRESS REPORT ---
Subjective Progress Note for:: 03/10/19 Subjective:: MICHAEL TERRY is a 53 year old female with a past medical history of COPD, hypertension, hyperlipidemia, GERD, tobacco abuse, and alcohol abuse who was admitted 03/09/2019 for acute respiratory failure with hypoxia secondary to COPD exacerbation. Patient was seen on evening rounds. She was found sitting up in the recliner, comfortably ,on supplemental oxygen at 2 L/min. She is not home O2 dependent. She reports continued dyspnea at rest, although significantly improved. She does have a productive cough. Overall she is feeling much better. She denies fever, chills, chest pain, palpitations, orthopnea, abdominal pain, nausea vomiting and diarrhea. She has no new questions or concerns at this time. No concerns per nursing. Reason For Visit: ACUTE RESP FAILURE W/ HYPOZIA, COPD EXACERBATION Physical Exam Vital Signs: Temp Pulse Resp BP Pulse Ox 98.4 F 85 22 H 150/73 H 95 03/10/19 15:20 03/10/19 15:20 03/10/19 15:20 03/10/19 15:20 03/10/19 15:20 Intake & Output 03/09/19 03/10/19 03/11/19 06:59 06:59 06:59 Intake Total 548 620 Output Total 0 Balance 548 620 Weight 103 kg General appearance: PRESENT: no acute distress, cooperative, well-developed, well-nourished - Overweight Head exam: PRESENT: atraumatic, normocephalic Eye exam: PRESENT: conjunctiva pink, EOMI, PERRLA. ABSENT: scleral icterus Ear exam: PRESENT: normal external ear exam Mouth exam: PRESENT: moist, tongue midline Respiratory exam: PRESENT: prolonged expiratory phas, rhonchi - Throughout, sy mmetrical, unlabored, wheezes - Slight expiratory wheeze, other - Supplemental oxygen by nasal cannula. ABSENT: rales Cardiovascular exam: PRESENT: RRR. ABSENT: diastolic murmur, rubs, systolic murmur Pulses: PRESENT: normal dorsalis pedis pul Vascular exam: PRESENT: normal capillary refill GI/Abdominal exam: PRESENT: normal bowel sounds, soft. ABSENT: distended, guarding, mass, organolmegaly, rebound, tenderness Rectal exam: PRESENT: deferred Extremities exam: PRESENT: full ROM. ABSENT: calf tenderness, clubbing, pedal edema Neurological exam: PRESENT: alert, awake, oriented to person, oriented to place, oriented to time, oriented to situation, CN II-XII grossly intact. ABSENT: motor sensory deficit Psychiatric exam: PRESENT: appropriate affect, normal mood. ABSENT: homicidal ideation, suicidal ideation Skin exam: PRESENT: dry, intact, warm. ABSENT: cyanosis, rash Results Laboratory Results: 03/10/19 06:16 03/10/19 06:16 03/10/19 03/10/19 06:16 06:16 WBC 9.1 RBC 4.63 Hgb 12.7 Hct 38.2 MCV 82 MCH 27.4 MCHC 33.3 RDW 16.7 H Plt Count 193 Sodium 140.9 Potassium 4.6 Chloride 101 Carbon Dioxide 30 Anion Gap 10 BUN 10 Creatinine 0.51 L Est GFR ( Amer) > 60 Glucose 144 H Calcium 9.6 03/09/19 03/09/19 03/09/19 08:48 08:48 08:48 Creatine Kinase 109 CK-MB (CK-2) 1.26 Troponin I < 0.012 NT-Pro-B Natriuret Pep 29 Impressions: Chest X-Ray 03/09/19 08:36 IMPRESSION: NO ACUTE RADIOGRAPHIC FINDING IN THE CHEST. Assessment and Plan - Diagnosis (1) COPD exacerbation Is this a current diagnosis for this admission?: Yes Plan: Improved; now maintaining oxygen saturations on nasal cannula. The patient is admitted to the medical floor and continuous cardiac telemetry. Continue supplemental oxygen BiPAP support as needed to maintain saturations greater than 89%. Continue doxycycline 100 mg p.o. twice daily for bronchitis (rapid worsening of symptoms with increased sputum production) Continue scheduled and as needed nebulizer treatments. Continue IV Solu-Medrol; will decrease dose today.. Mucinex twice daily. Encourage pulmonary toilet and ambulation when off BiPAP. (2) Acute respiratory failure with hypoxia Is this a current diagnosis for this admission?: Yes Plan: Secondary to COPD exacerbation. Evaluation management as above. (3) GERD (gastroesophageal reflux disease) Is this a current diagnosis for this admission?: Yes Plan: PPI daily. (4) Hyperlipidemia Is this a current diagnosis for this admission?: Yes Plan: Continue home dose statin. Cardiac diet. (5) Hypertension Is this a current diagnosis for this admission?: Yes Plan: Continue home medication regimen. IV hydralazine as needed for blood pressure control. Cardiac diet. (6) Alcohol dependence Qualifiers: Substance use status: uncomplicated Qualified Code(s): F10.20 - Alcohol dependence, uncomplicated Is this a current diagnosis for this admission?: Yes Plan: Patient denies history of alcohol withdrawal or alcohol related seizures. She does admit to drinking 3-4 beers nightly. Valium 5 mg every 6 hours scheduled. IV Ativan as needed for anxiety/agitation/withdrawal. Continue folic acid and thiamine supplementation. Patient has already received IV magnesium per ED provider for treatment of acute respiratory distress. (7) Tobacco dependence Is this a current diagnosis for this admission?: Yes Plan: Smoking cessation strongly encouraged. Nicotine replacement therapies provided. - Time Time Spent with patient: 25-34 minutes Medications reviewed and adjusted accordingly: Yes Anticipated discharge: Home Within: within 24 hours
[2019-03-10] MEDS: ATORVASTATIN CALCIUM 20 MG TABLET PO SCH (21:26)
[2019-03-11] MEDS: IPRATROPIUM/ALBUTEROL 0.5-2.5 MG/3 ML AMPUL NEB SCH ×4 (01:55→23:58)
[2019-03-11] MEDS: DIAZEPAM 5 MG TABLET PO SCH ×4 (02:07→17:04)
[2019-03-11] MEDS: METHYLPREDNISOLONE INJ 40 MG/1 ML SDV IV SCH ×2 (06:02→13:20)
[2019-03-11] MEDS: HEPARIN SOD (PORCINE) 5,000 UNIT/ML 1 ML VIAL SUBCUT SCH ×3 (06:03→21:36)
[2019-03-11] MEDS: LEVOTHYROXINE SODIUM 0.025 MG TABLET PO SCH (06:04)
[2019-03-11] MEDS: PANTOPRAZOLE SODIUM 20 MG TABLET.DR PO SCH ×2 (06:04→09:25)
[2019-03-11] MEDS: BUPROPION HCL 100 MG TABLET PO SCH ×3 (06:04→21:37)
[2019-03-11] MEDS: DOXYCYCLINE HYCLATE 100 MG TABLET PO SCH ×2 (09:23→21:39)
[2019-03-11] MEDS: ARIPIPRAZOLE 5 MG TABLET PO SCH (09:23)
[2019-03-11] MEDS: GUAIFENESIN 600 MG TABLET.SA PO SCH ×2 (09:24→21:37)
[2019-03-11] MEDS: AMLODIPINE BESYLATE 5 MG TABLET PO SCH (09:24)
[2019-03-11] MEDS: THIAMINE HCL 100 MG TABLET PO SCH (09:24)
[2019-03-11] MEDS: ASPIRIN 81 MG TABLET, ENT COATED PO SCH (09:24)
[2019-03-11] MEDS: FOLIC ACID 1 MG TABLET PO SCH (09:25)
[2019-03-11] MEDS: SERTRALINE HCL 50 MG TABLET PO SCH (09:25)
[2019-03-11] MEDS: DOCUSATE SODIUM 100 MG/10 ML UDC PO SCH (09:26)
[2019-03-11] MEDS: NICOTINE 14 MG/24 HR PATCH.TD24 TD SCH (09:26)
[2019-03-11] MEDS: FENOFIBRATE NANOCRYSTALLIZED 145 MG TABLET PO SCH (09:26)
--- NOTE | 2019-03-11 19:31 | PDOC PROGRESS REPORT ---
Subjective Progress Note for:: 03/11/19 Subjective:: MICHAEL TERRY is a 53 year old female with a past medical history of COPD, hypertension, hyperlipidemia, GERD, tobacco abuse, and alcohol abuse who was admitted 03/09/2019 for acute respiratory failure with hypoxia secondary to COPD exacerbation. Patient was seen on afternoon rounds. She was found sitting up in the recliner, comfortably ,on supplemental oxygen at 2 L/min. She is not home O2 dependent. She reports dyspnea at rest has resolved, does continue to have slight shortness of breath when ambulating. She does continue to require oxygen with activity. Decreased cough today. Overall, she reports she is improved. Hopeful to go home tomorrow. She denies fever, chills, chest pain, palpitations, orthopnea, abdominal pain, nausea vomiting and diarrhea. She has no new questions or concerns at this time. No concerns per nursing. Reason For Visit: ACUTE RESP FAILURE W/ HYPOZIA, COPD EXACERBATION Physical Exam Vital Signs: Temp Pulse Resp BP Pulse Ox 97.6 F 76 20 154/79 H 93 03/11/19 14:57 03/11/19 14:57 03/11/19 14:57 03/11/19 14:57 03/11/19 14:57 Intake & Output 03/10/19 03/11/19 03/12/19 06:59 06:59 06:59 Intake Total 548 2270 840 Output Total 0 Balance 548 2270 840 Weight 103 kg 103.7 kg General appearance: PRESENT: no acute distress, well-developed, well-nourished Head exam: PRESENT: atraumatic, normocephalic Eye exam: PRESENT: conjunctiva pink, EOMI, PERRLA. ABSENT: scleral icterus Ear exam: PRESENT: normal external ear exam Mouth exam: PRESENT: moist, tongue midline Respiratory exam: PRESENT: rhonchi - Improved, symmetrical, unlabored, other - Supplemental oxygen. ABSENT: rales, wheezes Cardiovascular exam: PRESENT: RRR, +S1, +S2. ABSENT: diastolic murmur, rubs, systolic murmur Pulses: PRESENT: normal dorsalis pedis pul Vascular exam: PRESENT: normal capillary refill GI/Abdominal exam: PRESENT: normal bowel sounds, soft. ABSENT: distended, guarding, mass, organolmegaly, rebound, tenderness Rectal exam: PRESENT: deferred Extremities exam: PRESENT: full ROM. ABSENT: calf tenderness, clubbing, pedal edema Musculoskeletal exam: PRESENT: ambulatory Neurological exam: PRESENT: alert, awake, oriented to person, oriented to place, oriented to time, oriented to situation, CN II-XII grossly intact. ABSENT: motor sensory deficit Psychiatric exam: PRESENT: appropriate affect, normal mood. ABSENT: homicidal ideation, suicidal ideation Skin exam: PRESENT: dry, intact, warm. ABSENT: cyanosis, rash Results Laboratory Results: 03/10/19 06:16 03/10/19 06:16 03/09/19 03/09/19 03/09/19 08:48 08:48 08:48 Creatine Kinase 109 CK-MB (CK-2) 1.26 Troponin I < 0.012 NT-Pro-B Natriuret Pep 29 Impressions: Chest X-Ray 03/09/19 08:36 IMPRESSION: NO ACUTE RADIOGRAPHIC FINDING IN THE CHEST. Assessment and Plan - Diagnosis (1) COPD exacerbation Is this a current diagnosis for this admission?: Yes Plan: Improved; now maintaining oxygen saturations on room air while at rest, does continue to require oxygen when ambulating.. The patient is admitted to the medical floor and continuous cardiac telemetry. Continue supplemental oxygen BiPAP support as needed to maintain saturations greater than 89%. Continue doxycycline 100 mg p.o. twice daily for bronchitis (rapid worsening of symptoms with increased sputum production) Continue scheduled and as needed nebulizer treatments. Decreased frequency of scheduled nebs. Transition to p.o. prednisone today. Mucinex twice daily. Encourage pulmonary toilet and ambulation (2) Acute respiratory failure with hypoxia Is this a current diagnosis for this admission?: Yes Plan: Secondary to COPD exacerbation. Evaluation management as above. (3) GERD (gastroesophageal reflux disease) Is this a current diagnosis for this admission?: Yes Plan: PPI daily. (4) Hyperlipidemia Is this a current diagnosis for this admission?: Yes Plan: Continue home dose statin. Cardiac diet. (5) Hypertension Is this a current diagnosis for this admission?: Yes Plan: Continue home medication regimen. IV hydralazine as needed for blood pressure control. Cardiac diet. (6) Alcohol dependence Qualifiers: Substance use status: uncomplicated Qualified Code(s): F10.20 - Alcohol dependence, uncomplicated Is this a current diagnosis for this admission?: Yes Plan: Patient denies history of alcohol withdrawal or alcohol related seizures. She does admit to drinking 3-4 beers nightly. Valium 5 mg every 6 hours scheduled. IV Ativan as needed for anxiety/agitation/withdrawal. Continue folic acid and thiamine supplementation. Patient has already received IV magnesium per ED provider for treatment of acute respiratory distress. (7) Tobacco dependence Is this a current diagnosis for this admission?: Yes Plan: Smoking cessation strongly encouraged. Nicotine replacement therapies provided. - Time Time Spent with patient: 25-34 minutes Medications reviewed and adjusted accordingly: Yes Anticipated discharge: Home Within: within 24 hours
[2019-03-11] MEDS: ATORVASTATIN CALCIUM 20 MG TABLET PO SCH (21:37)
[2019-03-12] MEDS: BUPROPION HCL 100 MG TABLET PO SCH ×2 (06:26→13:41)
[2019-03-12] MEDS: LEVOTHYROXINE SODIUM 0.025 MG TABLET PO SCH (06:27)
[2019-03-12] MEDS: PANTOPRAZOLE SODIUM 20 MG TABLET.DR PO SCH ×2 (06:30→10:33)
[2019-03-12] MEDS: HEPARIN SOD (PORCINE) 5,000 UNIT/ML 1 ML VIAL SUBCUT SCH ×2 (06:30→13:41)
[2019-03-12] MEDS: DIAZEPAM 5 MG TABLET PO SCH ×3 (06:30→13:38)
[2019-03-12] MEDS: IPRATROPIUM/ALBUTEROL 0.5-2.5 MG/3 ML AMPUL NEB SCH (07:47)
[2019-03-12] MEDS ORDERED: PREDNISONE 20 MG TABLET PO SCH (10:00)
[2019-03-12] MEDS: THIAMINE HCL 100 MG TABLET PO SCH (10:32)
[2019-03-12] MEDS: SERTRALINE HCL 50 MG TABLET PO SCH (10:32)
[2019-03-12] MEDS: ASPIRIN 81 MG TABLET, ENT COATED PO SCH (10:33)
[2019-03-12] MEDS: DOXYCYCLINE HYCLATE 100 MG TABLET PO SCH (10:33)
[2019-03-12] MEDS: AMLODIPINE BESYLATE 5 MG TABLET PO SCH (10:33)
[2019-03-12] MEDS: NICOTINE 14 MG/24 HR PATCH.TD24 TD SCH (10:33)
[2019-03-12] MEDS: FENOFIBRATE NANOCRYSTALLIZED 145 MG TABLET PO SCH (10:33)
[2019-03-12] MEDS: FOLIC ACID 1 MG TABLET PO SCH (10:33)
[2019-03-12] MEDS: GUAIFENESIN 600 MG TABLET.SA PO SCH (10:33)
[2019-03-12] MEDS: DOCUSATE SODIUM 100 MG/10 ML UDC PO SCH (10:34)
[2019-03-12] MEDS: ARIPIPRAZOLE 5 MG TABLET PO SCH (10:34)
[2019-03-12 14:28] VITALS: BP 143/70
--- NOTE | 2019-03-16 11:56 | PDOC DISCHARGE SUMMARY ---
Impression - Admit/DC Date/PCP Admission Date/Primary Care Provider: 03/09/19 12:41 IRVING PIERRE PA-C Discharge Date: 03/12/19 - Discharge Diagnosis (1) COPD exacerbation Is this a current diagnosis for this admission?: Yes (2) Acute respiratory failure with hypoxia Is this a current diagnosis for this admission?: Yes (3) GERD (gastroesophageal reflux disease) Is this a current diagnosis for this admission?: Yes (4) Hyperlipidemia Is this a current diagnosis for this admission?: Yes (5) Hypertension Is this a current diagnosis for this admission?: Yes (6) Alcohol dependence Is this a current diagnosis for this admission?: Yes (7) Tobacco dependence Is this a current diagnosis for this admission?: Yes - Additional Information Resuscitation Status: Full Code Discharge Diet: Cardiac Discharge Activity: Activity As Tolerated, Balance Activity w/Rest, Slowly Increase Activity Referrals: IRVING PIERRE PA-C [Primary Care Provider] - 03/22/19 3:30 pm Prescriptions: Albuterol Sulfate [Albuterol Sulfate Hfa] 2 puff IH Q6HP PRN #1 PRN Reason: WHEEZING Prednisone [Deltasone 20 mg Tablet] 60 mg PO DAILY #12 tablet Ipratropium/Albuterol Sulfate [Duoneb 3 ml Ampul] 3 ml NEB RTQ8HP PRN #90 vial.neb PRN Reason: Fluticasone Propionate [Flovent HFA 220 mcg MDI] 1 puff IH DAILY #1 Guaifenesin [Mucinex Sr 600 mg Tablet.sa] 600 mg PO Q12 #20 tablet.sa Nebulizer [Nebulizer Machine] 1 each MC ASDIR PRN #1 kit PRN Reason: Nicotine [Nicoderm 14 mg/24 Hr Transdermal Patch] 1 each TD DAILY #30 patch.td24 Tiotropium Br/Olodaterol HCl [Stiolto Respimat Inhal [place]] 2 puff IH DAILY #1 Doxycycline Hyclate [Vibramycin 100 mg Tablet] 100 mg PO Q12 #14 tablet Home Medications: Amlodipine Besylate [Norvasc 5 mg Tablet] 5 mg PO DAILY 03/09/19 Aripiprazole [Abilify 5 mg Tablet] 5 mg PO DAILY 03/09/19 Aspirin [Lo-Dose Aspirin EC] 81 mg PO DAILY 03/09/19 Bupropion HCl [Bupropion Xl] 300 mg PO DAILY 03/09/19 Buspirone HCl [Buspar 15 mg Tablet] 7.5 tab PO Q12 03/09/19 Ergocalciferol (Vitamin D2) [Drisdol 50,000 unit (1.25MG) Capsule] 50,000 unit PO MO@1000 03/09/19 Esomeprazole Magnesium [Nexium 24Hr] 20 mg PO DAILY 03/09/19 Fenofibrate Nanocrystallized [Fenofibrate] 160 mg PO DAILY 03/09/19 Folic Acid [Folvite 1 mg Tablet] 1 mg PO DAILY 03/09/19 Levothyroxine Sodium 25 mcg PO Q6AM 03/09/19 Potassium Chloride [Klor-Con 10 Meq Tablet ER] 10 meq PO DAILY 03/09/19 Rosuvastatin Calcium [Crestor 10 mg Tablet] 10 mg PO QHS 03/09/19 Sertraline HCl [Zoloft] 200 mg PO DAILY 03/09/19 Thiamine Mononitrate [Vitamin B-1] 100 mg PO DAILY 03/09/19 Ubidecarenone/Vitamin E Mixed [Coq10 Sg 100 Softgel] 1 each PO DAILY 03/09/19 Acetaminophen [Tylenol 325 mg Tablet] 650 mg PO Q4HP PRN tablet 03/12/19 Albuterol Sulfate [Albuterol Sulfate Hfa] 2 puff IH Q6HP PRN #1 03/12/19 Doxycycline Hyclate [Vibramycin 100 mg Tablet] 100 mg PO Q12 #14 tablet 03/12/19 Fluticasone Propionate [Flovent HFA 220 mcg MDI] 1 puff IH DAILY #1 03/12/19 Guaifenesin [Mucinex Sr 600 mg Tablet.sa] 600 mg PO Q12 #20 tablet.sa 03/12/19 Ipratropium/Albuterol Sulfate [Duoneb 3 ml Ampul] 3 ml NEB RTQ8HP PRN #90 vial.neb 03/12/19 Nebulizer [Nebulizer Machine] 1 each MC ASDIR PRN #1 kit 03/12/19 Nicotine [Nicoderm 14 mg/24 Hr Transdermal Patch] 1 each TD DAILY #30 patch.td24 03/12/19 Prednisone [Deltasone 20 mg Tablet] 60 mg PO DAILY #12 tablet 03/12/19 Tiotropium Br/Olodaterol HCl [Stiolto Respimat Inhal [place]] 2 puff IH DAILY #1 03/12/19 History of Present Illiness History of Present Illness: MICHAEL TERRY is a 53 year old female with a past medical history of COPD, hypertension, hyperlipidemia, GERD, tobacco abuse, and alcohol abuse who presents to the emergency department today with a complaint of 3 days of rapidly worsening dyspnea on exertion and productive cough. Evaluation in the emergency department today revealed Tachycardia (HR 107), tachypnea (RR 28), hypoxia on room air (85%), normal CBC, coags, VBG, chemistry, troponin, proBNP, lactic acid, and urinalysis. EKG demonstrated sinus tachycardia and chest x-ray was benign. The patient was provided supplemental oxygen, BiPAP support, nebulizer treatments, IV Solu-Medrol, and IV magnesium with improvement in her dyspnea and oxygenation. She is referred to the hospitalist service for admission and management of COPD exacerbation. Hospital Course Hospital Course: The patient was admitted to the medical floor. She was provided supplemental oxygen and BiPAP as needed to maintain saturations greater than 89%. She was supported with scheduled and as needed nebulizer treatment. She was empirically placed on doxycycline for treatment of bronchitis in the setting of COPD. She was further medicated with steroids and Mucinex. Her symptoms rapidly improved and her oxygen was able to be weaned to room air. For prevention of alcohol withdrawal, the patient was provided scheduled Valium; she did not require prn benzodiazepines. She did not experience any withdrawal symptoms during her admission. At time of discharge, the patient is in stable condition, asymptomatic, ambulatory on room air, and requesting discharge to home. She is discharged with a prescription for doxycycline to complete full course of therapy. She is further provided prescriptions for nebulizer machine, DuoNeb's, albuterol rescue inhaler, Mucinex, prednisone, as well as a refill of her home maintenance inhalers. She is instructed to stop smoking. She is advised to decrease her alcohol intake. She is encouraged to follow-up with her primary care provider within 1 week and to return to the emergency department as needed for concerning symptoms. Physical Exam Vital Signs: Temp Pulse Resp BP Pulse Ox 97.6 F 74 18 143/70 H 94 03/12/19 14:07 03/12/19 14:07 03/12/19 14:07 03/12/19 14:07 03/12/19 14:07 General appearance: PRESENT: no acute distress, cooperative, obese, well- developed, well-nourished Head exam: PRESENT: atraumatic, normocephalic Eye exam: PRESENT: conjunctiva pink, EOMI, PERRLA. ABSENT: scleral icterus Ear exam: PRESENT: normal external ear exam Mouth exam: PRESENT: moist, tongue midline Respiratory exam: PRESENT: clear to auscultation manish, symmetrical, unlabored. ABSENT: rales, rhonchi, wheezes Cardiovascular exam: PRESENT: RRR. ABSENT: diastolic murmur, rubs, systolic murmur Pulses: PRESENT: normal dorsalis pedis pul Vascular exam: PRESENT: normal capillary refill GI/Abdominal exam: PRESENT: normal bowel sounds, soft. ABSENT: distended, guarding, mass, organolmegaly, rebound, tenderness Rectal exam: PRESENT: deferred Extremities exam: PRESENT: full ROM. ABSENT: calf tenderness, clubbing, pedal edema Musculoskeletal exam: PRESENT: ambulatory Neurological exam: PRESENT: alert, awake, oriented to person, oriented to place, oriented to time, oriented to situation, CN II-XII grossly intact. ABSENT: motor sensory deficit Psychiatric exam: PRESENT: appropriate affect, normal mood. ABSENT: homicidal ideation, suicidal ideation Skin exam: PRESENT: dry, intact, warm. ABSENT: cyanosis, rash Results Laboratory Results: WBC 9.1 10^3/uL (4.0-10.5) 03/10/19 06:16 RBC 4.63 10^6/uL (3.72-5.28) 03/10/19 06:16 Hgb 12.7 g/dL (12.0-15.5) 03/10/19 06:16 Hct 38.2 % (36.0-47.0) 03/10/19 06:16 MCV 82 fl (80-97) 03/10/19 06:16 MCH 27.4 pg (27.0-33.4) 03/10/19 06:16 MCHC 33.3 g/dL (32.0-36.0) 03/10/19 06:16 RDW 16.7 % (11.5-14.0) H 03/10/19 06:16 Plt Count 193 10^3/uL (150-450) 03/10/19 06:16 Lymph % (Auto) 14.6 % (13-45) 03/09/19 08:48 [place] % (Auto) 12.1 % (3-13) 03/09/19 08:48 Eos % (Auto) 2.5 % (0-6) 03/09/19 08:48 Baso % (Auto) 1.0 % (0-2) 03/09/19 08:48 Absolute Neuts (auto) 4.5 10^3/uL (1.7-8.2) 03/09/19 08:48 Absolute Lymphs (auto) 0.9 10^3/uL (0.5-4.7) 03/09/19 08:48 Absolute Monos (auto) 0.8 10^3/uL (0.1-1.4) 03/09/19 08:48 Absolute Eos (auto) 0.2 10^3/uL (0.0-0.6) 03/09/19 08:48 Absolute Basos (auto) 0.1 10^3/uL (0.0-0.2) 03/09/19 08:48 Seg Neutrophils % 69.8 % (42-78) 03/09/19 08:48 PT 13.4 SEC (11.4-15.4) 03/09/19 08:48 INR 1.02 03/09/19 08:48 VBG pH 7.34 (7.30-7.42) 03/09/19 08:48 VBG pCO2 58.1 mmHg (35-63) 03/09/19 08:48 VBG HCO3 30.4 mmol/L (20-32) 03/09/19 08:48 VBG Base Excess 3.1 mmol/L 03/09/19 08:48 Sodium 140.9 mmol/L (137-145) 03/10/19 06:16 Potassium 4.6 mmol/L (3.6-5.0) 03/10/19 06:16 Chloride 101 mmol/L (98-107) 03/10/19 06:16 Carbon Dioxide 30 mmol/L (22-30) 03/10/19 06:16 Anion Gap 10 (5-19) 03/10/19 06:16 BUN 10 mg/dL (7-20) 03/10/19 06:16 Creatinine 0.51 mg/dL (0.52-1.25) L 03/10/19 06:16 Est GFR ( Amer) > 60 (>60) 03/10/19 06:16 Est GFR (MDRD) Non-Af > 60 (>60) 03/10/19 06:16 Glucose 144 mg/dL (75-110) H 03/10/19 06:16 POC Glucose 134 mg/dL (70-110) H 03/09/19 10:03 Lactic Acid (Sepsis) 0.7 mmol/L (0.7-2.1) 03/09/19 10:12 Calcium 9.6 mg/dL (8.4-10.2) 03/10/19 06:16 Total Bilirubin 0.4 mg/dL (0.2-1.3) 03/09/19 08:48 Direct Bilirubin 0.2 mg/dL (0.0-0.4) 03/09/19 08:48 Neonat Total Bilirubin Not Reportable 03/09/19 08:48 Neonat Direct Bilirubin Not Reportable 03/09/19 08:48 Neonat Indirect Bili Not Reportable 03/09/19 08:48 AST 84 U/L (14-36) H 03/09/19 08:48 ALT 96 U/L (<35) 03/09/19 08:48 Alkaline Phosphatase 92 U/L (38-126) 03/09/19 08:48 Creatine Kinase 109 U/L (30-135) 03/09/19 08:48 CK-MB (CK-2) 1.26 ng/mL (<4.55) 03/09/19 08:48 Troponin I < 0.012 ng/mL 03/09/19 08:48 NT-Pro-B Natriuret Pep 29 pg/mL (<125) 03/09/19 08:48 Total Protein 7.8 g/dL (6.3-8.2) 03/09/19 08:48 Albumin 4.5 g/dL (3.5-5.0) 03/09/19 08:48 Urine Color YELLOW 03/09/19 09:18 Urine Appearance SLIGHTLY-CLOUDY 03/09/19 09:18 Urine pH 6.0 (5.0-9.0) 03/09/19 09:18 Ur Specific [place] 1.008 03/09/19 09:18 Urine Protein NEGATIVE mg/dL (NEGATIVE) 03/09/19 09:18 Urine Glucose (UA) NEGATIVE mg/dL (NEGATIVE) 03/09/19 09:18 Urine Ketones NEGATIVE mg/dL (NEGATIVE) 03/09/19 09:18 Urine Blood NEGATIVE (NEGATIVE) 03/09/19 09:18 Urine Nitrite NEGATIVE (NEGATIVE) 03/09/19 09:18 Urine Bilirubin NEGATIVE (NEGATIVE) 03/09/19 09:18 Urine Urobilinogen NEGATIVE mg/dL (<2.0) 03/09/19 09:18 Ur Leukocyte Esterase NEGATIVE (NEGATIVE) 03/09/19 09:18 Urine WBC (Auto) 0 /HPF 03/09/19 09:18 Urine RBC (Auto) 0 /HPF 03/09/19 09:18 Urine Bacteria (Auto) TRACE /HPF 03/09/19 09:18 Squamous Epi Cells Auto 7 /HPF 03/09/19 09:18 Urine Mucus (Auto) RARE /LPF 03/09/19 09:18 Urine Ascorbic Acid NEGATIVE (NEGATIVE) 03/09/19 09:18 03/09/19 03/09/19 08:48 08:48 CK-MB (CK-2) 1.26 Troponin I < 0.012 NT-Pro-B Natriuret Pep 29 Impressions: Chest X-Ray 03/09/19 08:36 IMPRESSION: NO ACUTE RADIOGRAPHIC FINDING IN THE CHEST. Plan Plan of Treatment: Patient is discharged home in stable condition. She is instructed to stop smoking. She is encouraged to decrease her total alcohol intake. She is instructed to continue her antibiotic medications. All other medications as prescribed. She is advised to follow-up with her primary care provider within 1 week and to return to the emergency department as needed for concerning symptoms. Time Spent: Greater than 30 Minutes Stroke Is this a Stroke Patient?: No Acute Heart Failure - Is this a Heart Failure Patient?: No
== END 2019-03-12 14:47 | disposition home or self-care (01) ==
LOC: ER 08:26 → EH 12:41 → INTOOBSV 12:41 → 5 17:09
PROVIDERS: ADMIT Internal Medicine; ATTEND Internal Medicine
DX: J44.1 Chronic obstructive pulmonary disease with (acute) exacerbation (principal); J96.01 Acute respiratory failure with hypoxia; K21.9 Gastro-esophageal reflux disease without esophagitis; E78.5 Hyperlipidemia, unspecified; I10 Essential (primary) hypertension; F10.20 Alcohol dependence, uncomplicated; F17.210 Nicotine dependence, cigarettes, uncomplicated; E66.9 Obesity, unspecified; E03.9 Hypothyroidism, unspecified; Z79.899 Other long term (current) drug therapy; Z79.82 Long term (current) use of aspirin; Z82.49 Family history of ischemic heart disease and other diseases of the circulatory system
CPT/HCPCS: 93005; 94640 ×6; 99285; 96375; 96365; 36415 ×2; 87040; 82553; 82962; 82550; 85025; 85027; 85610; 80048; 80053; 81001; 84484; 82803; 83605; 83880; 71045; 93010; 94660; G0378 ×5; J1644 ×4; J3490 ×7; J2920 ×3; J2930; J3475; J7512; J7620 ×4